=== PATIENT | female | born 1940 | race Caucasian/White ===

== ENCOUNTER 2016-07-22 09:41 | Outpatient (CLI) ==
[2012-12-03 07:03] VITALS: TEMP 97.6
[2015-08-01 14:47] VITALS: BMI 29.2
[2016-07-22 10:17] LABS: BASOPHILS # (AUTO) 0.1 K/uL (0-0.2); BASOPHILS % (AUTO) 1.2 % (0.0-3.0); EOSINOPHILS # (AUTO) 0.1 K/ul (0.0-0.7); HEMATOCRIT 46.7 % (37.0-47.0); HEMOGLOBIN 14.7 g/dl (12.0-16.0); IMMATURE GRANULOCYTE % (AUTO) 0.3 % (0.0-5.0); LYMPHOCYTES # (AUTO) 1.5 K/uL (0.60-3.4); LYMPHOCYTES % (AUTO) 22.6 (10.0-50.0); MEAN CORPUSCULAR HEMOGLOBIN 29.1 pg (27.0-31.0); MEAN CORPUSCULAR HGB CONC 31.5 (31.8-35.4); MEAN CORPUSCULAR VOLUME 92.5 fl (81.0-99.0); MONOCYTES # (AUTO) 0.5 K/uL (0.4-2.0); MONOCYTES % (AUTO) 8.2 (0-10); NEUTROPHILS # (AUTO) 4.3 K/ul (2.0-6.9); NEUTROPHILS % (AUTO) 65.7; PLATELET COUNT 333 10^3/uL (140-440); RED BLOOD COUNT 5.05 10^6/ul (4.20-5.40); WHITE BLOOD COUNT 6.47 K/ul (4.6-10.2)
[2016-07-22 10:30] LABS: ALBUMIN 3.8 g/dL (3.4-5.0); ALBUMIN/GLOBULIN RATIO 1.03; ANION GAP 13.7; BILIRUBIN,TOTAL 0.33 mg/dL (0.00-1.20); BUN/CREATININE RATIO 28.57; CALCIUM 10.4 mg/dL (8.2-10.2); CHOL/HDL RATIO 2.7 (4.5-5.5); CREATININE 0.91 mg/dL (0.60-1.30); POTASSIUM 4.7 mmol/L (3.5-5.10); TOTAL PROTEIN 7.5 g/dL (5.8-8.1)
== END 2016-07-22 09:42 | disposition home or self-care (01) ==
LOC: LAB 09:41
PROVIDERS: ATTEND Psychiatry & Neurology Psychiatry
DX: Z79.899 Other long term (current) drug therapy (principal); F33.2 Major depressive disorder, recurrent severe without psychotic features
CPT/HCPCS: 36415; 80053; 80061; 85025; 90853

== ENCOUNTER 2016-07-29 10:00 | Outpatient (RCR) ==
[2012-12-03 07:03] VITALS: TEMP 97.6
[2015-08-01 14:47] VITALS: BMI 29.2
== END 2016-08-04 ==
LOC: NEWBEG 10:00
PROVIDERS: ATTEND Psychiatry & Neurology Psychiatry
DX: F33.2 Major depressive disorder, recurrent severe without psychotic features (principal)
CPT/HCPCS: 90853; 99214

== ENCOUNTER 2016-08-14 10:00 | Outpatient (RCR) ==
[2012-12-03 07:03] VITALS: TEMP 97.6
[2015-08-01 14:47] VITALS: BMI 29.2
== END 2016-09-01 ==
LOC: NEWBEG 10:00
PROVIDERS: ATTEND Psychiatry & Neurology Psychiatry
DX: F33.2 Major depressive disorder, recurrent severe without psychotic features (principal)
CPT/HCPCS: 90853; 99213

== ENCOUNTER 2016-10-28 10:00 | Outpatient (RCR) ==
[2012-12-03 07:03] VITALS: TEMP 97.6
[2015-08-01 14:47] VITALS: BMI 29.2
== END 2016-11-01 ==
LOC: NEWBEG 10:00
PROVIDERS: ATTEND Psychiatry & Neurology Psychiatry
DX: F33.2 Major depressive disorder, recurrent severe without psychotic features (principal)
CPT/HCPCS: 90792; 90853

== ENCOUNTER → 2016-12-02 | Outpatient (RCR) ==
[2012-12-03 07:03] VITALS: TEMP 97.6
[2015-08-01 14:47] VITALS: BMI 29.2
== END ==
LOC: NEWBEG 11-02 09:57
PROVIDERS: ATTEND Psychiatry & Neurology Psychiatry
DX: F33.2 Major depressive disorder, recurrent severe without psychotic features (principal)
CPT/HCPCS: 90853; 99213; 99214

== ENCOUNTER → 2017-01-01 | Outpatient (RCR) ==
[2012-12-03 07:03] VITALS: TEMP 97.6
[2015-08-01 14:47] VITALS: BMI 29.2
== END ==
LOC: NEWBEG 12-03 08:22
PROVIDERS: ATTEND Psychiatry & Neurology Psychiatry
DX: F33.2 Major depressive disorder, recurrent severe without psychotic features (principal)
CPT/HCPCS: 90853; 99213

== ENCOUNTER 2017-01-25 10:05 | Outpatient (CLI) ==
[2012-12-03 07:03] VITALS: TEMP 97.6
[2015-08-01 14:47] VITALS: BMI 29.2
== END 2017-01-25 10:06 | disposition home or self-care (01) ==
LOC: LAB 10:05
PROVIDERS: ATTEND Internal Medicine
DX: Z79.899 Other long term (current) drug therapy (principal)
CPT/HCPCS: 36415; 80152

== ENCOUNTER 2017-01-29 10:00 | Outpatient (RCR) ==
[2012-12-03 07:03] VITALS: TEMP 97.6
[2015-08-01 14:47] VITALS: BMI 29.2
== END 2017-02-01 ==
LOC: NEWBEG 10:00
PROVIDERS: ATTEND Psychiatry & Neurology Psychiatry
DX: F33.2 Major depressive disorder, recurrent severe without psychotic features (principal)
CPT/HCPCS: 90853; 99213

== ENCOUNTER 2017-02-22 08:59 | Outpatient (CLI) ==
[2012-12-03 07:03] VITALS: TEMP 97.6
[2015-08-01 14:47] VITALS: BMI 29.2
== END 2017-02-22 09:00 | disposition home or self-care (01) ==
LOC: RAD 08:59
PROVIDERS: ATTEND Internal Medicine
DX: Z12.31 Encounter for screening mammogram for malignant neoplasm of breast (principal)
CPT/HCPCS: 77067

== ENCOUNTER 2017-02-24 10:00 | Outpatient (RCR) ==
[2012-12-03 07:03] VITALS: TEMP 97.6
[2015-08-01 14:47] VITALS: BMI 29.2
== END 2017-03-04 ==
LOC: NEWBEG 10:00
PROVIDERS: ATTEND Psychiatry & Neurology Psychiatry
DX: F33.2 Major depressive disorder, recurrent severe without psychotic features (principal)
CPT/HCPCS: 90853; 99213

== ENCOUNTER 2017-03-05 10:00 | Outpatient (RCR) ==
[2012-12-03 07:03] VITALS: TEMP 97.6
[2015-08-01 14:47] VITALS: BMI 29.2
== END 2017-04-03 ==
LOC: NEWBEG 10:00
PROVIDERS: ATTEND Psychiatry & Neurology Psychiatry
DX: F33.2 Major depressive disorder, recurrent severe without psychotic features (principal)
CPT/HCPCS: 90853; 99213

== ENCOUNTER 2017-03-20 12:15 | Outpatient (CLI) | payer OTHER ==
[2012-12-03 07:03] VITALS: TEMP 97.6
[2015-08-01 14:47] VITALS: BMI 29.2
== END 2017-03-20 12:16 | disposition home or self-care (01) ==
LOC: AMBL 12:15
PROVIDERS: ATTEND Internal Medicine Geriatric Medicine
DX: G89.18 Other acute postprocedural pain (principal); M54.9 Dorsalgia, unspecified

== ENCOUNTER 2018-01-24 12:33 | Outpatient (CLI) ==
[2012-12-03 07:03] VITALS: TEMP 97.6
[2015-08-01 14:47] VITALS: BMI 29.2
--- NOTE | 2018-01-24 15:13 | US ---
EXAM: Carotid ultrasound HISTORY: Dizziness COMPARISON: 08/02/2015 TECHNIQUE: Carotid ultrasound was performed using lopez scale, color, and Doppler imaging was perform ed. FINDINGS: Right carotid: There is mild atherosclerotic plaque in the bulb and internal carotid artery. Peak s ystolic velocity measurement in the right internal carotid artery is 0.9 meters per second. End-demarco tolic velocity measurement in the right internal carotid artery is 0.2 meters per second. Right inte rnal to common carotid artery peak systolic velocity ratio is 1.1. Flow in the right vertebral arter y is antegrade. Left carotid: There is mild atherosclerotic plaque in the bulb and internal carotid artery. Peak sy stolic velocity measurement in the left internal carotid artery is 1.0 meters per second. End-diasto lic velocity measurement in the left internal carotid artery is 0.2 meters per second. Left internal to common carotid artery peak systolic velocity ratio measures 1.4. Flow in the left vertebral barbara ry is antegrade. IMPRESSION: 1. Right internal carotid: No evidence for greater than 50% stenosis 2. Left internal carotid: No evidence for greater than 50% stenosis
--- NOTE | 2018-01-24 15:13 | CT ---
EXAM: CT BRAIN, COMPLETE HISTORY: Dizziness TECHNIQUE: CT brain with and without intravenous contrast. 5-mm axial sections. Reformations were prepared. 75 ml Omnipaque FINDINGS: Compared to 08/01/2015. There is generalized atrophy, much greater in the frontal lobes. There is mild to moderate periventri cular and deep white matter low attenuation which although nonspecific is suggestive of chronic micro vascular ischemic change. No evidence of recent large vessel distribution ischemic infarction, mass, mass effect or intracranial hemorrhage. There is no acute ventriculomegaly or subdural hematoma. After intravenous contrast administration, there were no foci of abnormal contrast enhancement discov ered. Cranium is intact. Mastoid air cells are aerated and the visualized paranasal sinuses are clear. IMPRESSION: Involutional changes. No acute intracranial process identified. No abnormal contrast en hancing lesions.
== END 2018-01-24 12:34 | disposition home or self-care (01) ==
LOC: RAD 12:33
PROVIDERS: ATTEND Internal Medicine
DX: R42 Dizziness and giddiness (principal); R47.81 Slurred speech; I10 Essential (primary) hypertension
CPT/HCPCS: 36415; 80053; 85025

== ENCOUNTER 2018-05-09 09:36 | Outpatient (CLI) ==
[2012-12-03 07:03] VITALS: TEMP 97.6
[2015-08-01 14:47] VITALS: BMI 29.2
--- NOTE | 2018-05-09 12:03 | MAMMO ---
EXAM: Bilateral digital screening mammogram (2-D and 3-D) History: Screening Comparison: Bilateral mammogram 02/22/2017 Findings: MLO and CC views of bilateral breasts demonstrate scattered fibroglandular breast parenchy ma. CAD was reviewed by the radiologist. Tomosynthesis was performed. Stable benign bilateral ash[address] st calcifications. There are no dominant masses, no suspicious microcalcifications and no architectu ral distortions Impression: Benign stable mammogram. Recommend followup routine screening mammography in 1 year. BIRADS 2
== END 2018-05-09 09:37 | disposition home or self-care (01) ==
LOC: RAD 09:36
PROVIDERS: ATTEND Internal Medicine
DX: Z12.31 Encounter for screening mammogram for malignant neoplasm of breast (principal)

== ENCOUNTER 2018-08-26 09:00 | Outpatient (RCR) ==
[2012-12-03 07:03] VITALS: TEMP 97.6
[2015-08-01 14:47] VITALS: BMI 29.2
--- NOTE | 2018-08-10 13:36 | RS.OPPTEV2 ---
Date of Note: 08/09/18 Visit #: 1 Number of visits approved by Insurance: NA Date of Evaluation: 08/09/18 Payer Source: MEDICARE Surgery Performed?: No Treatment Diagnosis: Left shoulder pain History of Condition/Mechanism of Injury:: Ms. Man reports having left shoulder pain for a few years. States it has just now been addressed because it was thought to have been coming from her neck. States she has arthritis all over. Prior Level of Function.....Patient was independent with: ADL's, Self Care, Ambulation/Mobility, Community Integration/Access Functional Limitations: Self Care, ADL's, Reaching, Pushing, Pulling, Lifting, Carrying, Community Access/Integration Current Subjective/complaints:: Patient reports left shoulder pain. She just had an Xray of the left shoulder yesterday. She is right hand dominant. Reports she cannot use the left UE very much for selfcare or ADL's due to pain. States she is unable to lay on the left shoulder. Reports tingling and numbness in her UE's from her neck. 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 States her shoulder is sore. Reports heat does not usually do much. She gets some benefit with ice. States when she is hurting really bad, the only thing that helps is taking a pain pill. Reports difficulty performing selfcare and ADL's with the left UE, such as donning/doffing her bra. Treatment Side (optional): Left Medical History Medical History: Hypertension, CVA/TIA, Arthritis ("all over"), Other Medical History Comments:: Bladder surgery, depression, PN Surgical History Comments:: Lumbar surgery 2013 and 2016, Cervical sugery 2016, Left ulnar nerve relocation >35 years ago. Smoking Status: Former smoker Hx Home Medications: Fluoxetine, Methylphenidate, Omeprazole, Losartan, Calcium , Aspirin, [place], Trazodine, Olanzapine, Simvastatin Patient's Goals: Her goal is to get some relief of left shoulder pain. Pain Assessment - Pain Description Pain Location: left shoulder Current Pain Intensity: 2/10 Worst Pain Intensity: 7/10 Functional Outcome Measure UE Functional Index: 42 (42/80=47.5% impairment) - G Codes & Severity Modifier G Codes & Modifier: NA Source of G Code score: NA Observation - Observation Posture: Forward Head, Rounded Shoulders Handedness: Right - Left Shoulder ROM Comments: Left shoulder AROM is WFL's into flexion, ER and IR. She reports pain above shoulder height and with end range ER and IR. Left shoulder active abduction to 110 degrees, limited by pain. - Right Shoulder ROM Comments: Right shoulder AROM is WFL's. - Left Shoulder Strength Left Shoulder Flexion: 4- Good- Left Shoulder Extension: 4- Good- Left Shoulder Abduction: 3+ Fair+ Left Shoulder Adduction: 4 Good Left Shoulder External Rotation: 4- Good- Left Shoulder Internal Rotation: 4- Good- - Right Shoulder Strength Right Shoulder Flexion: 4+ Good + Right Shoulder Extension: 4+ Good + Right Shoulder Abduction: 4+ Good + Right Shoulder Adduction: 4+ Good + Right Shoulder External Rotation: 4 Good Right Shoulder Internal Rotation: 4 Good - Special Tests Shoulder Quigley-Singh Impingement Test: Positive Left Comments: Difficult to perform Valid Special Tests to the left shoulder due to patient reporting pain throughout the left shoulder, elbow, and wrist with all testing. Chair Strength Left Hand Chair Strength: 25-26 lb.s Right Hand Chair Strength: 20 lbs. Dynamometer Testing Position: 2nd Position Palpation Comments:: Patient reports significant tenderness with palpation to the left shoulder joint, especially the posterior aspect of the GH joint and the superior border of the left scapula. Reports she is sore throughout the shoulder. Sensation - Sensation Comments: Reports tingling and numbness in both UE's. States she can distinguish light touch throughout both UE's. Interventions - Exercise/Activities/Manual Therapy Exercises/Activities: Pt instructed in pendulum ex, scapular retraction, and wall slide/finger walking for AAROM into shoulder flexion. Emhasized several times to perform activities and exercises in a range that does not increase her pain. Total minutes of Exercise: X 12 mins Manual Therapy: na HOME EXERCISE PROGRAM: pendulum ex, scapular retraction, and wall slide/finger walking for AAROM into shoulder flexion. - Charges Timed Code Treatment Minutes: 12 mins Total Treatment Time: 45 mins Procedures billed for this date of service:: EVAL Medium, EX EVALUATION COMPLEXITY LEVEL EVALUATION COMPLEXITY LEVEL: HISTORY: Medium (HX Arthritis, Lumbar sx, Cerv sx, Ulnar nerve sx), EXAM OF BODY SYSTEMS: Medium (ROM, MS, pain, sensation), CLINICAL PRESENTATION: Medium, CLINICAL DECISION MAKING: Medium Assessment Assessment: Ms. Man presents to therapy with a diagnosis of chronic left shoulder pain. She reports pain with ROM and limitation with ADL's such as donning/doffing bra and other clothes. She demonstrates functional AROM, but weakness throughout the left shoulder. It is difficult to determine soft- tissue involvement, due to reports of pain with all palpation, ROM, and strength testing. She demonstrates potential to benefit from strengthening exercises to gain some relief of pain and increase functional use of the left UE. Patient Education: Education of diagnosis, Body/Joint mechanics, Home Exercise Program, Education of Plan of Care Rehab Potential: Good Short Term Goals Goal #1: Pt independent in HEP. Goal to be met by: 08/24/18 Goal #2: Left shoulder strength 4/5. Goal to be met by: 08/24/18 Goal #3: Pt to demonstrate improved postural awareness. Goal to be met by: 08/24/18 Jail Goals Goal #1: Pt knows HEP and to continue ex's to maintain functional level at D/c. Goal to be met by: 09/19/18 Goal #2: Score on UE functional scale improved to 60/80. Goal to be met by: 09/19/18 Goal #3: Pt able to use left UE for selfcare and ADL's with minimal discomfort. Goal to be met by: 09/19/18 Goal #4: Pt able to sleep without interruption from left shoulder pain. Goal to be met by: 09/19/18 Plan - Treatment to be Provided Procedures: Therapeutic Exercises, Therapeutic Activity, Manual Therapy, Patient Education Modalities: Electrical Stimulation, Ultrasound/Phonophoresis, Cryotherapy, Hot Packs - Treatment Plan Frequency: 2-3 X week Duration: 4 weeks Dates of Acid Wash Operator Goals: 09/19/18 Expiration date of current Insurance Approval:: NA - Treatment Code (1) Shoulder pain Code(s): M25.519 - PAIN IN UNSPECIFIED SHOULDER Qualifiers: Chronicity: chronic Laterality: left Qualified Code(s): M25.512 - Pain in left shoulder; G89.29 - Other chronic pain (2) Weakness of shoulder Code(s): M62.81 - MUSCLE WEAKNESS (GENERALIZED) Comments: M62.81
--- NOTE | 2018-08-11 10:54 | RS.OPPTDN ---
Subjective Date of Note: 08/11/18 Visit #: 2 Number of visits approved by Insurance: [id number] Date of Evaluation: 08/09/18 Payer Source: MEDICARE Treatment Diagnosis: Left shoulder pain Current Subjective/complaints:: Patient c/o LE pain along with her back and L shoulder due to rain. She says her shoulder feels good when she is in the hot shower, but after she gets out, pain returns. She points to the lateral and superior L scapula for pain location. - Treatment Modality: Ultrasound Parameters/Method Applied: continuous @ 1.5 w/cm2 x 12 mins to the L shoulder ( posterior) and superior/lateral scapula. Patient Position: Sitting - Heat/Cryotherapy Treatment: Hot Pack (12 mins to the L shoulder and scapula in sitting) Interventions - Exercise/Activities/Manual Therapy Exercises/Activities: Patient began to receive gentle PROM for the L UE all dir. She performs shoulder shrugs and scap retraction. Started manual isometrics x 3 for biceps/triceps, ER/IR, ABD. Began pt education of diagnosis and HEP. Total minutes of Exercise: 12 Manual Therapy: na HOME EXERCISE PROGRAM: pendulum ex, scapular retraction, and wall slide/finger walking for AAROM into shoulder flexion. - Charges Timed Code Treatment Minutes: 24 Total Treatment Time: 36 Procedures billed for this date of service:: hp, u/s, ex Assessment: Patient presents with pain generally throughout related to arthritis , previous surgeries, and damp weather. She expresses tenderness to the L shoulder posteriorally and to the superior scapular region, however, this was not affected by u/s. She was able to susan Passive elevation to near WFL, but ABD was less tolerable and more limited. She should benefit from further modalities to ease pain and improve ROM and strength to the L UE. Patient Education: Education of diagnosis, Home Exercise Program, Education of Plan of Care Patient demonstrates compliance with HEP?: Yes Short Term Goals Goal #1: Pt independent in HEP. Goal to be met by: 08/24/18 Progress towards Goal:: Progressing Comments:: Patient has initiated Goal #2: Left shoulder strength 4/5. Goal to be met by: 08/24/18 Goal #3: Pt to demonstrate improved postural awareness. Goal to be met by: 08/24/18 Slip Presser Goals Goal #1: Pt knows HEP and to continue ex's to maintain functional level at D/c. Goal to be met by: 09/19/18 Goal #2: Score on UE functional scale improved to 60/80. Goal to be met by: 09/19/18 Goal #3: Pt able to use left UE for selfcare and ADL's with minimal discomfort. Goal to be met by: 09/19/18 Goal #4: Pt able to sleep without interruption from left shoulder pain. Goal to be met by: 09/19/18 Plan Dates of Slip Presser Goals: 09/19/18 Expiration date of current Insurance Approval:: 09/19/18 PLAN: Patient to continue for treatment to the L UE
--- NOTE | 2018-08-15 11:20 | RS.OPPTDN ---
Subjective Date of Note: 08/15/18 Visit #: 3 Number of visits approved by Insurance: Reassess at 10th Date of Evaluation: 08/09/18 Payer Source: MEDICARE Treatment Diagnosis: Left shoulder pain Current Subjective/complaints:: Patient recalls elevation of pain to the L side of the neck and shoulder. She says that last treatment seemed to help for about a day. - Treatment Modality: Ultrasound Parameters/Method Applied: continuous @ 1.5 w/cm2 x 12 mins to the L shoulder and distal portion of L UT Patient Position: Sitting - Heat/Cryotherapy Treatment: Hot Pack (over the L shoulder and neck in sitting x 15 mins) Interventions - Exercise/Activities/Manual Therapy Exercises/Activities: Patient began with gentle PROM to the cspine for SB, rotation, shoulder shrugs and scap adduction actively. Continued to receive gentle PROM for the L UE all dir. Continued with manual isometrics x 5 for biceps/triceps, ER/IR, FLEX/EXT, ABD. Continued with pt education of diagnosis , anatomy, therex performed, and HEP. Total minutes of Exercise: 16 Manual Therapy: na HOME EXERCISE PROGRAM: pendulum ex, scapular retraction, and wall slide/finger walking for AAROM into shoulder flexion. - Charges Timed Code Treatment Minutes: 28 Total Treatment Time: 43 Procedures billed for this date of service:: hp, u/s, ex Assessment: Patient presents with elevated shoulder and neck pain (L) probably due to consistent raining and cooler temps as she admits improvement for ~1 day following previous session. She has difficulty susan Cspine ROM beyond ~50% norm due to past ACF. She susan passive L shoulder flex/abd WFL and without pain/ difficulty. She appears to be responding to treatment currently. Patient Education: Education of diagnosis, Body/Joint mechanics, Home Exercise Program, Education of Plan of Care Short Term Goals Goal #1: Pt independent in HEP. Goal to be met by: 08/24/18 Progress towards Goal:: Progressing Goal #2: Left shoulder strength 4/5. Goal to be met by: 08/24/18 Goal #3: Pt to demonstrate improved postural awareness. Goal to be met by: 08/24/18 Half-Way Goals Goal #1: Pt knows HEP and to continue ex's to maintain functional level at D/c. Goal to be met by: 09/19/18 Goal #2: Score on UE functional scale improved to 60/80. Goal to be met by: 09/19/18 Goal #3: Pt able to use left UE for selfcare and ADL's with minimal discomfort. Goal to be met by: 09/19/18 Goal #4: Pt able to sleep without interruption from left shoulder pain. Goal to be met by: 09/19/18 Plan Dates of Half-Way Goals: 09/19/18 Expiration date of current Insurance Approval:: 09/19/18 PLAN: Patient to continue for modalities and therex for the L shoulder/neck.
--- NOTE | 2018-08-17 10:21 | RS.OPPTDN ---
Subjective Date of Note: 08/17/18 Visit #: 4 Number of visits approved by Insurance: NA Date of Evaluation: 08/09/18 Payer Source: MEDICARE Treatment Diagnosis: Left shoulder pain Current Subjective/complaints:: Patient reports she has taken pain meds. this morning .She cannot on the L shoulder ,as it increases the L shoulder pain. Pain Assessment - Pain Description Pain Location: L shoulder/upper portion of L scapula Pain Description: Dull, Aching, Chronic Current Pain Intensity: 2/10 - Treatment Modality: Ultrasound Parameters/Method Applied: 10 mins. @ 1.5 w/cm 2,continuous mode to L shoulder. Patient Position: Sitting - Heat/Cryotherapy Treatment: Hot Pack (20 mins. prior to US and exercises) Interventions - Exercise/Activities/Manual Therapy Exercises/Activities: 20 mins. ,beginning with biceps/triceps strengthening with yellow theraband,IR/ER with L arm at side using yellow theraband,then 1# wand exercise of overhead flexion with elbows extended ,then with elbows flexed. Total minutes of Exercise: 20 Manual Therapy: na Total minutes of Manual Therapy: 0 HOME EXERCISE PROGRAM: pendulum ex, scapular retraction, and wall slide/finger walking for AAROM into shoulder flexion. - Charges Timed Code Treatment Minutes: 20 Total Treatment Time: 50 Procedures billed for this date of service:: hp,US ,ex Assessment: Patient has functional ROM in the L shoulder,but c/o pain more in the upper medial border of the L scapula and muscle belly of the L upper trap.She reports relief continues to last about one day,but also mentions the rainy weather recently elevates her pain. Patient Education: Education of diagnosis, Body/Joint mechanics, Home Exercise Program, Home Safety, Activity Modification, Education of Plan of Care Patient demonstrates compliance with HEP?: Yes Short Term Goals Goal #1: Pt independent in HEP. Goal to be met by: 08/24/18 Progress towards Goal:: Progressing Goal #2: Left shoulder strength 4/5. Goal to be met by: 08/24/18 Progress towards Goal:: Progressing Goal #3: Pt to demonstrate improved postural awareness. Goal to be met by: 08/24/18 Paving Inspector Goals Goal #1: Pt knows HEP and to continue ex's to maintain functional level at D/c. Goal to be met by: 09/19/18 Progress towards goal: Progressing Goal #2: Score on UE functional scale improved to 60/80. Goal to be met by: 09/19/18 Goal #3: Pt able to use left UE for selfcare and ADL's with minimal discomfort. Goal to be met by: 09/19/18 Goal #4: Pt able to sleep without interruption from left shoulder pain. Goal to be met by: 09/19/18 Plan Dates of Paving Inspector Goals: 09/19/18 Expiration date of current Insurance Approval:: NA PLAN: Cont. skilled PT to reduce /eliminate L shoulder pain,increase ROM for functional activities.
--- NOTE | 2018-08-23 13:44 | RS.OPPTDN ---
Subjective Date of Note: 08/23/18 Visit #: 5 Number of visits approved by Insurance: Reassess at 10th Date of Evaluation: 08/09/18 Payer Source: MEDICARE Treatment Diagnosis: Left shoulder pain Current Subjective/complaints:: Patient says she believes she will always have "this kind of pain," but performs tasks that have to be done anyway. She says riding in the car is the worst to tolerate and reports hanging up laundry prior to coming into therapy this morning has aggravated her pain. Patient says she has only had slight, temporary relief from PT. She says she wants to make Wednesday her final session. Pain Assessment - Pain Description Pain Location: L shoulder and scapula - Treatment Modality: Ultrasound Parameters/Method Applied: continuous @ 1.5 w/cm2 x 12 mins to the L distal UT, scapula, and shoulder Patient Position: Sitting - Heat/Cryotherapy Treatment: Hot Pack (over the L shoulder and neck x 20 mins sitting) Interventions - Exercise/Activities/Manual Therapy Exercises/Activities: 20 mins. PROM to the L shoulder all ranges in sitting, isometrics for ABD/IR/ER/EXT/FLEX 2x5. 1# wand for bilateral shoulder elevation , shoulder shrugs, scap adduction, yellow tband for scap retraction x 10reps. Continued with education on diagnosis and HEP as well as benefits of treatment today. Manual Therapy: na HOME EXERCISE PROGRAM: pendulum ex, scapular retraction, and wall slide/finger walking for AAROM into shoulder flexion. - Charges Timed Code Treatment Minutes: 32 Total Treatment Time: 52 Procedures billed for this date of service:: hp,u/s, ex Assessment: Patient only admitting slight improvement in pain level to the L shoulder/scapula, but is temporary. She wishes to discontinue order early and have her next session be her final visit. She feels her symptoms are going to be ever present no matter what. She has some difficulty tolerating isometrics and active shoulder flexion beyond 110-120 degrees. Patient Education: Education of diagnosis, Home Exercise Program, Education of Plan of Care Short Term Goals Goal #1: Pt independent in HEP. Goal to be met by: 08/24/18 Progress towards Goal:: Progressing Goal #2: Left shoulder strength 4/5. Goal to be met by: 08/24/18 Progress towards Goal:: Progressing Goal #3: Pt to demonstrate improved postural awareness. Goal to be met by: 08/24/18 Validation Manager Goals Goal #1: Pt knows HEP and to continue ex's to maintain functional level at D/c. Goal to be met by: 09/19/18 Progress towards goal: Progressing Goal #2: Score on UE functional scale improved to 60/80. Goal to be met by: 09/19/18 Goal #3: Pt able to use left UE for selfcare and ADL's with minimal discomfort. Goal to be met by: 09/19/18 Goal #4: Pt able to sleep without interruption from left shoulder pain. Goal to be met by: 09/19/18 Plan Dates of Custodial Goals: 09/19/18 Expiration date of current Insurance Approval:: 09/19/18 PLAN: continue x 1 more session per patient's request.
--- NOTE | 2018-08-26 12:06 | RS.OPPTDN ---
Subjective Date of Note: 08/26/18 Visit #: 6 Number of visits approved by Insurance: Reassess at 10 Date of Evaluation: 08/09/18 Payer Source: MEDICARE Treatment Diagnosis: Left shoulder pain Current Subjective/complaints:: Patient reports elevated pain today. Says she is really achy related to the weather. Reports she has not had much relief with therapy and wants to stop after today, but does indicate that she has more mobility to her shoulder. - Treatment Modality: Ultrasound Parameters/Method Applied: continuous @ 1.5 w/cm2 x 10 mins to the L UT ( distally) and shoulder Patient Position: Sitting - Heat/Cryotherapy Treatment: Hot Pack (over the L UT/shoulder x 20 mins in sitting) Interventions - Exercise/Activities/Manual Therapy Exercises/Activities: 20 mins. PROM to the L shoulder all ranges in supine, isometrics for ABD/IR/ER/EXT/FLEX 2x5. 1# wand for bilateral shoulder elevation supine, shoulder shrugs, scap adduction, red tband for scap retraction x 10reps. 1# wand for bilateral shoulder elevation in sitting x 10, wand for AA ABD x 8. Provided handout for more HEP with red tband. Patient voices understanding. Total minutes of Exercise: 17 Manual Therapy: na HOME EXERCISE PROGRAM: pendulum ex, scapular retraction, and wall slide/finger walking for AAROM into shoulder flexion. - Charges Timed Code Treatment Minutes: 29 Total Treatment Time: 44 Procedures billed for this date of service:: hp,u\s, ex Assessment: Patient demo Passive flexion to 160 degrees, ABD to 100 degrees supine. Actively, pt able to achieve 140 degrees in sitting, abd to 90. Patient wishes to discontinue due to the fact she still has moderate to severe pain and it affects many tasks daily especially riding/driving car. She does admit improved ROM actively, but feels treatment is not affective presently. Unsure if she is compliant with HEP at this time. Patient Education: Education of diagnosis, Home Exercise Program, Home Safety, Education of Plan of Care Short Term Goals Goal #1: Pt independent in HEP. Goal to be met by: 08/24/18 Progress towards Goal:: Progressing Goal #2: Left shoulder strength 4/5. Goal to be met by: 08/24/18 Progress towards Goal:: Progressing Goal #3: Pt to demonstrate improved postural awareness. Goal to be met by: 08/24/18 Progress towards Goal:: No Change Director Medicaid Goals Goal #1: Pt knows HEP and to continue ex's to maintain functional level at D/c. Goal to be met by: 09/19/18 Progress towards goal: Progressing Goal #2: Score on UE functional scale improved to 60/80. Goal to be met by: 09/19/18 Progress towards goal: No Change Goal #3: Pt able to use left UE for selfcare and ADL's with minimal discomfort. Goal to be met by: 09/19/18 Progress towards goal: Progressing Goal #4: Pt able to sleep without interruption from left shoulder pain. Goal to be met by: 09/19/18 Progress towards goal: No Change Plan Dates of Director Medicaid Goals: 09/19/18 Expiration date of current Insurance Approval:: 09/19/18 PLAN: Patient to d/c per her request
--- NOTE | 2018-08-31 09:50 | RS.OPPTDC ---
Date of Discharge: 08/26/18 Date of Evaluation: 08/09/18 Number of Visits: 6 Treatment Diagnosis: Left shoulder pain Current Complaints/Gains: Patient requests to stop therapy after today's visit. States she has had little change and feels she is just going to have flare ups and will have to manage them. She reports tightness and soreness to the right side of the neck, scapula, and shoulder. Functional Outcome Measure UE Functional Index: 42 (42/80=47.5% impairment) - G Codes & Severity Modifier G Codes & Modifier: NA Source of G Code score: NA Interventions - Exercise/Activities/Manual Therapy Exercises/Activities: NA Manual Therapy: na HOME EXERCISE PROGRAM: pendulum ex, scapular retraction, and wall slide/finger walking for AAROM into shoulder flexion. - Objective Findings Observations,measurements,etc.: Demonstrates shoulder abduction to 120 degrees AROM. Flexion WFL's. MMT 4+/5 grossly. - Charges Timed Code Treatment Minutes: NA Total Treatment Time: NA Procedures billed for this date of service:: NA Assessment Assessment: No change in UE functional index. Patient requests to stop therapy. Slight improvement with active shoulder abduction. Patient has exercises to continue at home. Short Term Goals Goal #1: Pt independent in HEP. Goal to be met by: 08/24/18 Progress towards Goal:: Met Goal #2: Left shoulder strength 4/5. Goal to be met by: 08/24/18 Progress towards Goal:: Not Met Goal #3: Pt to demonstrate improved postural awareness. Goal to be met by: 08/24/18 Progress towards Goal:: Not Met [employer] Service Supervisor Goals Goal #1: Pt knows HEP and to continue ex's to maintain functional level at D/c. Goal to be met by: 09/19/18 Progress towards goal: Met Goal #2: Score on UE functional scale improved to 60/80. Goal to be met by: 09/19/18 Progress towards goal: Not Met Goal #3: Pt able to use left UE for selfcare and ADL's with minimal discomfort. Goal to be met by: 09/19/18 Progress towards goal: Not Met Goal #4: Pt able to sleep without interruption from left shoulder pain. Goal to be met by: 09/19/18 Progress towards goal: Not Met Plan Reason for Discharge:: Self-Discharge
== END 2018-09-01 23:59 ==
PROVIDERS: ATTEND Nurse Practitioner Family
DX: M25.512 Pain in left shoulder (principal); G89.29 Other chronic pain

== ENCOUNTER 2018-09-28 08:06 | Outpatient (CLI) ==
[2012-12-03 07:03] VITALS: TEMP 97.6
[2015-08-01 14:47] VITALS: BMI 29.2
== END 2018-09-28 08:07 | disposition home or self-care (01) ==
LOC: LAB 08:06
DX: Z79.899 Other long term (current) drug therapy (principal)
CPT/HCPCS: 36415; 80053

== ENCOUNTER 2019-07-09 08:32 | Inpatient (IN) ==
--- NOTE | 2019-07-09 09:02 | ED.PDOC ---
General ED Provider: Dr. SKYLER SY Chief Complaint: Urinary Problem Stated Complaint: states his having difficulty initiating urination, lower abdominal cramping, freq trips to bathroom, Slight rectal bleeding Time Seen by Physician: 09:02 Mode of Arrival: Walk-In Information Source: Patient Primary Care Provider: CARISA RUIZ Nursing and Triage Documentation Reviewed and Agree: Yes Does patient meet sepsis criteria?: No System Inflammatory Response Syndrome: Not Applicable Sepsis Protocol: For patient's 13 years and over: Temp is 96.8 and below OR 101 and greater Pulse >90 BPM Resp >20/minute Acutely Altered Mental Status Are patient's symptoms suggestive of a new infection, such as: -Pneumonia -Skin, Soft Tissue -Endocarditis -UTI -Bone, Joint Infection -Implantable Device -Acute Abdominal Infection -Wound Infection -Meningitis -Blood Stream Catheter Infection -Unknown Complaint Exam Complaint/Exam Patient Complains of: Reports Dysuria (inability to void) Onset/Duration: 24 hr Symptoms Are: Worse Timing: Constant Episodes of Voiding Over Last 12 Hours: 0 Initial Severity: Moderate Current Severity: Moderate Location of Pain: Reports Suprapubic Character: Reports Colicky, Constant pressure and Cramping Aggravating: Reports None Alleviating: Reports None Associated Signs and Symptoms: Reports Dysuria, Constipation and Rectal pain Surgical Obstruction Risk Factors: Reports None Related Surgical History: Reports None Abdominal Findings: Present None Differential Diagnoses: Ureteral Stone and UTI Review of Systems Review Of Systems Constitutional: Reports No symptoms Eyes: Reports No symptoms Ears, Nose, Mouth, Throat: Reports No symptoms Respiratory: Reports No symptoms Cardiac: Reports No symptoms GI: Reports No symptoms and Abdominal pain : Reports No symptoms, Dysuria and Urgency Musculoskeletal: Reports No symptoms Skin: Reports No symptoms Neurological: Reports No symptoms Endocrine: Reports No symptoms Hematologic/Lymphatic: Reports No symptoms All Other Systems: Reviewed and Negative [facility] Medical History Arthritis Cerebrovascular accident Elevated cholesterol Gastroesophageal reflux disease Family History Mother Cardiac disease Psychiatric problem Cerebrovascular accident Father Diabetes Cancer SISTER No problems noted. Social History Smoking and tobacco status: Former smoker Substance use type: does not use Female Reproductive History Menstrual Hx Hysterectomy: Yes Hx Tubal Ligation: Yes Physical Exam Physical Exam Appearance: Well-appearing Ill-appearing: None Pain Distress: Mild Eyes: MELI ENT: Ears normal, Nose normal and Oropharynx normal Neck: Supple Respiratory: Airway patent, Breath sounds clear and Breath sounds equal Cardiovascular: RRR, Pulses normal, No rub and No murmur GI/: Soft, Nontender, No masses, Bowel sounds normal and No Organomegaly Musculoskeletal: Normal strength and ROM intact Skin: Warm, Dry and Normal color Neurological: Sensation intact, Motor intact, Reflexes intact, Cranial nerves intact, Alert and Oriented Psychiatric: Affect appropriate, Mood appropriate and Anxious Critical Care Note Critical Care Note Total Time (mins): 60 Course Course Hematology/Chemistry: 07/09/19 09:23 07/09/19 09:23 Orders, Labs, Meds: Lab Review 07/09/19 07/09/19 07/09/19 09:20 09:23 09:23 WBC 6.40 RBC 4.60 Hgb 13.7 Hct 42.6 MCV 92.6 MCH 29.8 MCHC 32.2 RDW Coeff of Giovanna 14.2 Plt Count 264 Immature Gran % (Auto) 0.3 Neut % (Auto) 81.3 Lymph % (Auto) 10.8 [place] % (Auto) 6.6 Eos % (Auto) 0.5 Baso % (Auto) 0.5 Immature Gran # (Auto) 0.0 Neut # (Auto) 5.2 Lymph # (Auto) 0.7 [place] # (Auto) 0.4 Eos # (Auto) 0.0 Baso # (Auto) 0.0 Sodium 140.4 Potassium 3.97 Chloride 104.8 Carbon Dioxide 27.6 Anion Gap 11.97 BUN 20.4 H Creatinine 0.73 Estimated GFR (MDRD) 77.00 BUN/Creatinine Ratio 27.94 Glucose 101.7 Calcium 9.97 Magnesium Total Bilirubin 0.51 AST 23.7 ALT 14.2 Alkaline Phosphatase 109.6 Troponin I < 0.012 Total Protein 7.14 Albumin 3.94 Globulin 3.20 Albumin/Globulin Ratio 1.23 Amylase Lipase Urine Color Yellow Urine Clarity Clear Urine pH 7.0 Ur Specific [place] 1.025 Urine Protein Negative Urine Glucose (UA) Negative Urine Ketones 1+ Urine Blood Negative Urine Nitrite Negative Urine Bilirubin Negative Urine Urobilinogen 0.2 Ur Leukocyte Esterase Negative 07/09/19 09:23 WBC RBC Hgb Hct MCV MCH MCHC RDW Coeff of Giovanna Plt Count Immature Gran % (Auto) Neut % (Auto) Lymph % (Auto) [place] % (Auto) Eos % (Auto) Baso % (Auto) Immature Gran # (Auto) Neut # (Auto) Lymph # (Auto) [place] # (Auto) Eos # (Auto) Baso # (Auto) Sodium Potassium Chloride Carbon Dioxide Anion Gap BUN Creatinine Estimated GFR (MDRD) BUN/Creatinine Ratio Glucose Calcium Magnesium 2.13 Total Bilirubin AST ALT Alkaline Phosphatase Troponin I Total Protein Albumin Globulin Albumin/Globulin Ratio Amylase 54.0 Lipase 97.8 Urine Color Urine Clarity Urine pH Ur Specific [place] Urine Protein Urine Glucose (UA) Urine Ketones Urine Blood Urine Nitrite Urine Bilirubin Urine Urobilinogen Ur Leukocyte Esterase Orders Category Date Time Status ADMIT PATIENT INPATIENT .TO [facility] (MONITORED BED) ADMISSION 07/09/19 11:53 Active ADMIT PATIENT INPATIENT .TO [facility] (MONITORED BED) ADMISSION 07/09/19 11:59 Active ABG DRAW REQUEST Stat CARDIO 07/09/19 11:57 Completed EKG-(ED ONLY) Stat CARDIO 07/09/19 11:57 Completed OXYGEN Routine CARDIO 07/09/19 11:58 Ordered ACTIVITY .BR with BRP CARE 07/09/19 12:00 Active INTAKE & OUTPUT Q8HR CARE 07/09/19 12:00 Active TELEMETRY MONITORING TELE CARE 07/09/19 11:53 Active TELEMETRY MONITORING TELE CARE 07/09/19 12:00 Active VITAL SIGNS Q8HR CARE 07/09/19 11:59 Active VITAL SIGNS Q8HR CARE 07/09/19 12:00 Active SOFT DIET DIETARY 07/09/19 Lunch Ordered [place] [ED CATHETER INSERTION AND CARE] .ONCE EMERGENCY 07/09/19 09:16 Active IV [ED IV/MEDIPORT/POWERPORT] .ONCE EMERGENCY 07/09/19 11:57 Active ABG Stat LAB 07/09/19 12:01 Completed CBC W/ AUTO DIFF DAILY@0600 LAB 07/10/19 06:00 Ordered CBC W/ AUTO DIFF DAILY@0600 LAB 07/11/19 06:00 Ordered CBC W/ AUTO DIFF Stat LAB 07/09/19 09:23 Completed CMP [COMPREHENSIVE METABOLIC PANEL] Stat LAB 07/09/19 09:23 Completed COMPREHENSIVE METABOLIC PANEL DAILY@0600 LAB 07/10/19 06:00 Ordered COMPREHENSIVE METABOLIC PANEL DAILY@0600 LAB 07/11/19 06:00 Ordered LIPASE Stat LAB 07/09/19 09:23 Completed MAGNESIUM Stat LAB 07/09/19 09:23 Completed TROPONIN I Stat LAB 07/09/19 09:23 Completed UA [URINALYSIS C & S IF INDICATED] Stat LAB 07/09/19 09:20 Completed 0.9 % Sodium Chloride [Saline Flush] MEDS 07/09/19 11:53 Active 1 syr IVF PRN PRN Lidocaine (Uro-Jet) [Uro-Jet] MEDS 07/09/19 09:16 Discontinued 10 ml [id number] ONCE STA Ondansetron HCl/Pf [Zofran 4 mg/2 ml] MEDS 07/09/19 11:58 Active 4 mg IVP Q6H PRN Sodium Chloride 0.9% [Sodium Chloride] 1,000 ml MEDS 07/09/19 11:53 Active IV BOLUS RESUSCITATION STATUS Routine OTHERS 07/09/19 11:[address] ABD/PEL WO RENAL STONE PROT Stat RADS 07/09/19 10:15 Completed Medications Generic Name Dose Route Start Last Admin Trade Name Freq PRN Reason Stop Dose Admin Hydrocodone Bitart/Acetaminophen 1 tab 07/09/19 12:59 [place] 7.5-325 PO QID PRN Severe pain Albuterol/Ipratropium 3 ml 07/09/19 14:00 Duoneb NEB RTQID NIELS Albuterol/Ipratropium 3 ml 07/09/19 12:47 Duoneb NEB RTQ6H PRN Wheezing; dyspnea Aspirin 325 mg 07/10/19 08:00 Aspirin Ec PO DAILYWM NIELS Cholecalciferol 1,000 unit 07/10/19 09:00 Vitamin D PO DAILY NIELS Citalopram Hydrobromide 40 mg 07/10/19 09:00 Celexa PO DAILY NIELS Losartan Potassium 100 mg 07/10/19 09:00 Cozaar PO DAILY NIELS Omeprazole 20 mg 07/09/19 21:00 Prilosec PO BID NIELS Ondansetron HCl 4 mg 07/09/19 11:58 Zofran 4 Mg/2 Ml IVP Q6H PRN Nausea / Vomiting Polyethylene Glycol 17 gm 07/09/19 13:00 Miralax PO DAILY NIELS Potassium Chloride 20 meq 07/10/19 09:00 K-Dur PO DAILY NIELS Sennosides 8.6 mg 07/09/19 13:00 Senna PO DAILY NIELS Sodium Chloride 1 syr 07/09/19 11:53 07/09/19 12:21 Saline Flush IVF 1 syr PRN PRN Administration To flush IV Trazodone HCl 200 mg 07/10/19 09:00 Desyrel PO DAILY NIELS Triamterene/HCTZ 1 cap 07/09/19 13:00 Dyazide PO DIRECTED NIELS Discontinued Medications Generic Name Dose Route Start Last Admin Trade Name Freq PRN Reason Stop Dose Admin Sodium Chloride 1,000 mls @ 1,000 mls/hr 07/09/19 11:53 07/09/19 12:21 Sodium Chloride IV 07/09/19 12:52 1,000 mls/hr BOLUS STA Administration Lidocaine HCl 10 ml 07/09/19 09:16 07/09/19 09:23 Uro-Jet MUCOUSMEMB 07/09/19 09:17 Not Given ONCE STA Vital Signs: Temp Pulse Resp BP Pulse Ox 07/09/19 08:32 98.9 F 81 16 149/83 H 94 L Discharge Plan Discharge Patient Disposition: ADMITTED INPATIENT Discharge Problem: Obstipation ED Provider: SKYLER SY Condition: Fair Discharge Date/Time: 07/09/19 12:50
[2019-07-09] MEDS ORDERED: URO-JET MUCOUSMEMB STA (09:16)
--- NOTE | 2019-07-09 10:57 | CT ---
EXAM: CT scan of the abdomen and pelvis without contrast HISTORY: Renal stone, constipation. TECHNIQUE: Helical imaging of the abdomen pelvis was performed without contrast. 3 mm thin axial im ages and coronal and sagittal reconstructions were provided for interpretation. Comparison 01/25/2019 and 03/27/2019. FINDINGS: The liver, spleen, pancreas, kidneys appear normal. The proximal ureters are normal size. The small and large bowel loops are normal caliber. There are small nonobstructing calculi seen wi thin the calyces of the left kidney. There is no free air. No retroperitoneal abnormalities are see n. The helical images obtained through the pelvis demonstrate a normal appearance of the urinary bladder . There is no free fluid seen within the pelvis. Scattered diverticula are seen within the sigmoid colon without acute inflammation. There is distension of the rectum by fecal material. There is a n odule seen in the subpleural left lung base seen on axial image #2. The lesion measures approximatel y 1.2 cm. IMPRESSION: There is no bowel obstruction. There is mild distension of the rectum by fecal material and the findings may represent mild fecal im paction. Interval mild increase in size of the left lower lobe pulmonary nodule measuring up to 1.2 cm. A nucl ear medicine PET scan can be obtained to determine if the lesion is metabolically active. A small br onchogenic carcinoma cannot be excluded. Mild diverticular disease of the sigmoid colon without acute inflammation. Nonobstructing nephrolithiasis seen within the left kidney. No definite obstructing ureteral calculi are seen.
[2019-07-09] MEDS ORDERED: SODIUM CHLORIDE 1,000 ML IV STA (11:53)
[2019-07-09] MEDS ORDERED: ZOFRAN 4 MG/2 ML IVP PRN (11:58)
[2019-07-09] MEDS ORDERED: DUONEB NEB PRN (12:47)
[2019-07-09] MEDS ORDERED: NORCO 7.5-325 PO PRN (12:59)
[2019-07-09] MEDS ORDERED: DYAZIDE PO SCH (13:00)
[2019-07-09 13:13] VITALS: BMI 25.5
[2019-07-09] MEDS: MIRALAX PO SCH (13:32)
[2019-07-09] MEDS: SENNA PO SCH (13:32)
[2019-07-09] MEDS: DUONEB NEB SCH ×2 (14:28→19:10)
[2019-07-09] MEDS: PRILOSEC PO SCH (16:44)
[2019-07-09] MEDS: TORADOL IVP SCH ×3 (17:24→20:45)
[2019-07-09] MEDS: ZOCOR PO SCH (20:32)
[2019-07-09] MEDS ORDERED: DESYREL PO SCH (21:00)
[2019-07-10] MEDS: DUONEB NEB SCH ×4 (04:20→19:35)
[2019-07-10] MEDS: PRILOSEC PO SCH ×2 (05:49→17:11)
[2019-07-10] MEDS: TORADOL IVP SCH ×3 (05:50→20:24)
[2019-07-10] MEDS ORDERED: ASPIRIN EC PO SCH (08:00)
[2019-07-10] MEDS ORDERED: CITRATE OF MAGNESIA PO STA (08:35)
--- NOTE | 2019-07-10 08:58 | PCM.PROG ---
Attending Provider: ATTENDING PROVIDER: Dr. CARISA RUIZ This patient is seen with Sushma Hickman, Nurse Practitioner. DATE OF SERVICE: 07/10/19 SUBJECTIVE: This 78 year old /WHITE F was hospitalized 07/09/19. The patient is resting comfortably. Only having small amount of liquid stool likely around area of impaction. Not complaining of any abdominal pain. She had recently been to ER twice for urinary retention. REVIEW OF SYSTEMS: CONSTITUTIONAL: No night sweats. Fatigue. No fever or chills. HEENT: Eyes: No visual changes. No eye pain. No eye discharge. ENT: No runny nose. No epistaxis. No sinus pain. No odynophagia. No congestion. RESPIRATORY: No cough, no congestion. No hemoptysis. No shortness of breath. CARDIOVASCULAR: No angina symptoms. No CHF symptoms. No atypical chest pain for CAD. No palpitations. No orthopnea.. GASTROINTESTINAL: No abdominal pain. No nausea or vomiting. Constipation. No hematemesis. No hematochezia. GENITOURINARY: No urgency. No frequency. No dysuria. No hematuria. No obstructive symptoms. No discharge. No pain. No significant abnormal bleeding. MUSCULOSKELETAL: No musculoskeletal pain; no joint swelling. NEUROLOGICAL: Awake, alert, oriented to person. No headache. No neck pain. No syncope. No seizures. No dizziness. PSYCHIATRIC: Not anxious. No depression. No suicidal thoughts. No homicidal thoughts. SKIN: No rash. No lesions. No wounds. ENDOCRINE: No unexplained weight loss. No weight gain. HEMATOLOGIC/LYMPHATIC: No anemia. No purpura. No petechiae. No prolonged or excessive bleeding. No palpable lymph nodes. PHYSICAL EXAMINATION: GENERAL: The patient is awake, alert and oriented to person, lying in bed in no distress. VITAL SIGNS: Temperature 98.2 F, Pulse 81, Respiratory Rate 18, BP 113/66, Pulse Ox 95% HEENT: Head normocephalic, atraumatic. Eyes: Extraocular muscles are intact. Pupils are equal, round and reactive to light and accommodation. Ears: No lesions. Nose appeared normal. Throat: No exudate or erythema. NECK: Supple. No JVD, no carotid bruit. No lymphadenopathy or thyromegaly. LUNGS: Diminished breath sounds. Clear to auscultation. Percussion note normal. Chest symmetrical. HEART: S1, S2, no S3. No murmurs. No cyanosis or clubbing. No ascites. Pulses: Dorsalis pedis and posterior tibial pulses +1 to +2 both sides. ABDOMEN: Soft. Non-tender. Bowel sounds active. No CVA tenderness. No mass felt. EXTREMITIES: No edema. Full range of motion of all extremities, equal. NEUROLOGIC: No focal deficit. Cranial nerves II through XII are grossly intact. No headache, no double vision or headache. SKIN: Not dry. Intact. Turgor-normal. LYMPHATIC: No palpable lymph nodes/no lymphedema. MUSCULOSKELETAL: Normal joints with no swelling. Muscle tone is normal. LAB REVIEW: 07/10/19 04:20 07/10/19 04:58 07/10/19 04:58: Sodium 138.7, Potassium 3.59, Chloride 107.7 H, Carbon Dioxide 27.8, Anion Gap 6.79, BUN 22.0 H, Creatinine 0.75, Estimated GFR (MDRD) 75.00, BUN/Creatinine Ratio 29.33, Glucose 110.4 H, Calcium 9.49, Total Bilirubin 0.38, AST 17.7, ALT 11.5, Alkaline Phosphatase 82.9 D, Total Protein 5.73 L, Albumin 3.19 L, Globulin 2.54, Albumin/Globulin Ratio 1.25 07/10/19 04:20: WBC 6.06, RBC 4.07 L, Hgb 12.1, Hct 39.1, MCV 96.1, MCH 29.7, MCHC 30.9 L, RDW Coeff of Giovanna 14.3, Plt Count 228, Immature Gran % (Auto) 0.3, Neut % (Auto) 66.8, Lymph % (Auto) 18.6, [place] % (Auto) 11.4 H, Eos % (Auto) 2.1, Baso % (Auto) 0.8, Immature Gran # (Auto) 0.0, Neut # (Auto) 4.0, Lymph # (Auto) 1.1, [place] # (Auto) 0.7, Eos # (Auto) 0.1, Baso # (Auto) 0.1 07/09/19 12:01: Puncture Site Rbrach, O2 Saturation 93.0 L, ABG pH 7.385, ABG pCO2 38.9, ABG pO2 67.0 L, ABG HCO3 23.3, ABG Total CO2 24, ABG Base Excess -2, FiO2 % 21.0 07/09/19 11:45: Stl Occult Blood (IFOB) Positive, Stool Occult Blood #2 No specimen received, Stool Occult Blood #3 No specimen received 07/09/19 09:23: Magnesium 2.13, Amylase 54.0, Lipase 97.8 07/09/19 09:23: Sodium 140.4, Potassium 3.97, Chloride 104.8, Carbon Dioxide 27.6, Anion Gap 11.97, BUN 20.4 H, Creatinine 0.73, Estimated GFR (MDRD) 77.00, BUN/Creatinine Ratio 27.94, Glucose 101.7, Calcium 9.97, Total Bilirubin 0.51, AST 23.7, ALT 14.2, Alkaline Phosphatase 109.6, Troponin I < 0.012, Total Protein 7.14, Albumin 3.94, Globulin 3.20, Albumin/Globulin Ratio 1.23 07/09/19 09:23: WBC 6.40, RBC 4.60, Hgb 13.7, Hct 42.6, MCV 92.6, MCH 29.8, MCHC 32.2, RDW Coeff of Giovanna 14.2, Plt Count 264, Immature Gran % (Auto) 0.3, Neut % (Auto) 81.3, Lymph % (Auto) 10.8, [place] % (Auto) 6.6, Eos % (Auto) 0.5, Baso % (Auto) 0.5, Immature Gran # (Auto) 0.0, Neut # (Auto) 5.2, Lymph # (Auto) 0.7, [place] # (Auto) 0.4, Eos # (Auto) 0.0, Baso # (Auto) 0.0 07/09/19 09:20: Urine Color Yellow, Urine Clarity Clear, Urine pH 7.0, Ur Specific [place] 1.025, Urine Protein Negative, Urine Glucose (UA) Negative, Urine Ketones 1+, Urine Blood Negative, Urine Nitrite Negative, Urine Bilirubin Negative, Urine Urobilinogen 0.2, Ur Leukocyte Esterase Negative ASSESSMENT: Please see below. 1. Fecal impaction 2. Constipation 3. Urinary retention 4. Recent UTI 5. History of CVA 6. History of PE 10-19 7. Chronic depression, bipolar sees psych PLAN: 1. Half bottle Mag Citrate 2. Enema by noon if no results 3. Will reconcile medications. Plan and coordination of the patient's care discussed in the presence of Supervisor Baking and nurse. SCRIBED BY: Lyric CASTRO scribed while in presence of service performed by Dr. Ruiz/Sushma Hickman APRN on 07/10/19 ([id number])
[2019-07-10] MEDS ORDERED: VITAMIN D PO SCH (09:00)
[2019-07-10] MEDS ORDERED: K-DUR PO SCH (09:00)
[2019-07-10] MEDS ORDERED: DESYREL PO SCH (09:00)
[2019-07-10] MEDS ORDERED: CELEXA PO SCH (09:00)
[2019-07-10] MEDS ORDERED: DYAZIDE PO SCH ×2 (09:00)
[2019-07-10] MEDS: MIRALAX PO SCH (09:10)
[2019-07-10] MEDS: SENNA PO SCH (09:11)
[2019-07-10] MEDS: ABILIFY PO SCH (09:12)
[2019-07-10] MEDS: COZAAR PO SCH (09:12)
[2019-07-10] MEDS: PAXIL PO SCH (10:43)
--- NOTE | 2019-07-10 13:33 | RS.OTINEVL ---
Subjective - Patient information Date of Evaluation: 07/10/19 Date of Arrival on Unit: 07/09/19 Admitted From:: Home Diagnosis: constipation, renal stone PRECAUTIONS: Does not always want to participate Usual Living Arrangement: With Spouse Living Arrangement Comments: has home health PT and ST Home Environment: House, Stairs (few), Rail Medical History: Hypertension, CVA/TIA, Arthritis Medical History Comments:: GERD, LATEX ALLERGY?: No Surgical History: Lumbar Spine Surgical History Comments:: carpal tunnel release Medications: see chart Subjective Information/ Patient Comments:: "I don't want to do this today." "I can't move my legs." - Level of function Prior to this admission, the patient could do the following:: Partially Dependent Ambulation Abilities prior to this admission: Pt was able to ambulate with her rolling walker to the toilet independently. Pt was living at home with her and was receiving home health from [facility] in [facility]. Current Level of Function: Partially Dependent Comments: Pt requires assistance for functional mobility and ADLS. Current Equipment Used at Home: rolling walker, walk in shower Pain Assessment - Pain Pain Score: 3 Side: bilateral Pain Location Body Site: rectum Pain Aggravating Factors: Changing Position, Sitting Pain Alleviating Factors: Medication, Lying Supine Interventions - Objective Patient Orientation: Person Current Interventions: IV's Observation: Pt appears to have a delay in responding to questions. Pt does not always want to participate in the evaluation. Pt has increased weakness and difficulty with sit to stand and ambulation with a RW. Pt is has limited shoulder flexion and weakness of BUE. Interventions - ROM Right Upper Extremity AROM: Slight limitation Left Upper Extremity AROM: Slight limitation - Strength Right Upper Extremity Strength: Mild Weakness Left Upper Extremity Strength: Mild Weakness - Sensation Right Upper Extremity Sensation: Intact/Normal Left Upper Extremity Sensation: Intact/Normal Balance - Sitting Balance Static Sitting Balance: Fair Dynamic Sitting Balance: Fair - Standing Balance Static Standing Balance: Poor Dynamic Standing Balance: Poor ADL Skills - Self Feeding Self Feeding: Independent - Dressing Dressing UE: Min Assist Dressing LE: Mod Assist - Toilet Management Toileting Management: Mod Assist Functional Mobility - Bed Mobility Rolling R/L: Min Assist Scooting: Min Assist Supine to Sit: Min Assist Sit to Supine: Min Assist - Transfers Sit to Stand: Min Assist Stand to Sit: Min Assist Stand Pivot Transfers: Min Assist PIO INDEX SCORE: . Additional Treatment Performed - Time with patient Length of Evaluation: 18 Total treatment time: 20 Activities Do you enjoy playing games?: No Would you be interested in leaving your room for activities?: No Would you enjoy group activities?: No Do you have difficulty with your vision?: Yes What types of things do you enjoy doing? Any Hobbies?: Watching TV, talking with . Patient Interests:: Watching Television, Visiting/Socializing Patient Education Patient Education: Education of diagnosis, Home Exercise Program, Home Safety, Education of Plan of Care Teaching Recipient: Patient Teaching Methods: Discussion Assessment Problem List:: Decreased level of function, Requires training/education, Decreased safety/Risk of falls, Weakness, Pain limits previous level of function Rehab Potential: Fair Further Therapy Indicated?: Yes Evaluation Complexity: HISTORY: Medium, EXAM OF BODY SYSTEMS: Medium, CLINICAL DECISION MAKING: Medium Patient's Goal(s): To go home. Short Term Goals - Goals GOAL 1: Pt to increase activity tolerance to 10 minutes for self cares. Goal to be met by: 07/14/19 GOAL 2: Pt to increase toilet transfer to Minimal assistance. Goal to be met by: 07/14/19 GOAL 3: Pt to increase BUE strength to 4/5. Goal to be met by: 07/14/19 GOAL 4: Pt to increase dyn. std. bal. to Fair-. Goal to be met by: 07/14/19 Operations Welder Goals GOAL 1: Pt to increase activity tolerance to 15 minutes for self cares. Goal to be met by: 07/17/19 GOAL 2: Pt to increase toilet transfer to CGA. Goal to be met by: 07/17/19 GOAL 3: Pt to increase BUE strength to 4+/5. Goal to be met by: 07/17/19 Plan Plan of Care: Therapeutic EX, Therapeutic Activity, Self-Care/Home Management Frequency of Treatment: 1-2 X day, as tolerated Duration of Treatment: 1 Week Anticipated Discharge Destination: Home Treatment Diagnosis (ICD 10 Codes): Muscle Weakness M62.81, Z74.1 Need for assistance with personal care. Has the Physician been added for Co-signature?: Yes
--- NOTE | 2019-07-10 14:48 | RS.PTINEVL ---
Subjective - Patient information Date of Evaluation: 07/10/19 Date of Arrival on Unit: 07/09/19 Admitted From:: Home Diagnosis: constipation, h/o fall, difficulty with urination Usual Living Arrangement: With Spouse Living Arrangement Comments: has home health PT and ST Home Environment: House, Stairs (few), Rail Medical History: Hypertension, CVA/TIA, Arthritis Medical History Comments:: GERD, LATEX ALLERGY?: No Surgical History: Lumbar Spine Surgical History Comments:: carpal tunnel release Medications: see chart Subjective Information/ Patient Comments:: pt states that she doesn't think she can walk. States that she is too weak. Required max encouragement to participate with PT. - Level of function Prior to this admission, the patient could do the following:: Partially Dependent Ambulation Abilities prior to this admission: pt had assist with personal care from home health Current Level of Function: Partially Dependent Current Equipment Used at Home: rolling walker, walk in shower Pain Assessement - Location abd Description: Aching Pain Behavior: Rubbing Site Interventions - Objective Patient Orientation: Person, Place Current Interventions: Telemetry, Obregon Catheter Observation: pt seen lying in bed. Range of Motion - ROM Right Upper Extremity AROM: WFL's Left Upper Extremity AROM: WFL's Right Lower Extremity AROM: WFL's Left Lower Extremity AROM: WFL's Muscle Strength - Muscle Strength Right Upper Extremity Strength: Mild Weakness (grossly) Left Upper Extremity Strength: Mild Weakness Right Lower Extremity Strength: Mild Weakness Left Lower Extremity Strength: Mild Weakness Sensation - Sensation Right Upper Extremity Sensation: Intact/Normal Left Upper Extremity Sensation: Intact/Normal Right Lower Extremity Sensation: Intact/Normal Left Lower Extremity Sensation: Intact/Normal Palpation Palpation Findings: Tenderness Comments:: in abdomen Balance - Sitting Balance and Reactions Static Sitting Balance: Fair Dynamic Sitting Balance: Poor Sitting Equilibrium Reactions: Delayed Left, Delayed Right Sitting Protective Reactions: Delayed Left, Delayed Right - Standing Balance and Reactions Static Standing Balance: Poor Dynamic Standing Balance: Poor Standing Equilibrium Reactions: Delayed Left, Delayed Right Standing Protective Reactions: Delayed Left, Delayed Right Functional Mobility - Bed Mobility Rolling R/L: Mod Assist, 1 person assist Supine to Sit: Mod Assist, 1 person assist - Transfers Sit to Stand: Min Assist, 1 person assist Stand to Sit: Min Assist, 1 person assist - Safety Awareness Safety Awareness: Fair PIO INDEX SCORE: n/a Ambulation - Ambulation Assistive Device Used: Rolling Walker Orthotic/Prosthetic Device: No Distance: 15ft Assistance needed with Ambulation: Min Assist, 1 person assist Gait Deviations: Forward posture, Short stride, Deviates from path Ambulation Comments: pt amb with flexed posture, decreased step length. Factors Affecting Ambulation: Decreased Balance, Weakness, Decreased Safety, Cognitive Status, Limited Endurance Treatment time - Time with patient Length of Evaluation: 21 Total treatment time: 26 Patient Education - Education Patient Education: Home Exercise Program, Education of Plan of Care Teaching Recipient: Patient Teaching Methods: Discussion Comments: discussion regarding POC Assessment - Assessment Problem List:: Decreased level of function, Requires training/education, Decreased safety/Risk of falls, Weakness, Pain limits previous level of function, Cognitive status limits abilities Rehab Potential: Fair Further Therapy Indicated?: Yes Candidate for Swing Bed for Therapy Services?: Feel pt may not be a candidate for swing bed due to cognitive deficits and resistance to participate. Evaluation Complexity: HISTORY: Medium, EXAM OF BODY SYSTEMS: Medium, CLINICAL PRESENTATION: Medium, CLINICAL DECISION MAKING: Medium Patient's Goal(s): pt unable to verbalize goals. goal is for patient to return home with home health. Short Term Goals GOAL #1: pt demonstrate rolling and bridging with CGA Goal to be met by: 07/12/19 GOAL #2: Transferred sup to/from sit min to cGA Goal to be met by: 07/12/19 GOAL #3: Sit to/from stand CGA Goal to be met by: 07/12/19 GOAL #4: pt amb 50ft with rolling walker, with CGA no LOB Goal to be met by: 07/12/19 Medical Sales Goals GOAL #1: pt transfer sup to/from sit to/from stand CGA Goal to be met by: 07/14/19 GOAL #2: pt amb functional household distances with RWX and CGA Goal to be met by: 07/14/19 GOAL #3: Improve BLE strength 4/5 Goal to be met by: 07/14/19 Plan Plan of Care: Therapeutic EX, Therapeutic Activity Other:: gait training Frequency of Treatment: 1-2 X day, as tolerated Duration of Treatment: 5 days Anticipated Discharge Destination: Home (with home health) Treatment Diagnosis (ICD 10 Codes): balance impaired R26.81. difficulty walking R 26.81. weakness M62.81 Has the Physician been added for Co-signature?: Yes
--- NOTE | 2019-07-10 14:55 | PN ---
DATE OF SERVICE: 07/09/19 SUBJECTIVE: The patient was hospitalized today with severe constipation, abdominal pain. The patient was noted to have more or less like fecal impaction on CT scan partially removed in the emergency room. She was hospitalized for further treatment. The patient is oriented to person. She doesn't remember the name of her medications. The patient was seen on the floor in Room 116. PHYSICAL EXAMINATION: HEENT: Head normocephalic, atraumatic. Eyes: Extraocular muscles are intact. Pupils are equal, round and reactive to light and accommodation. Ears: No lesions. Nose appeared normal. Throat: No exudate or erythema. NECK: Supple. No JVD, no carotid bruit. No lymphadenopathy or thyromegaly. LUNGS: Clear to auscultation. Percussion note normal. Chest symmetrical. HEART: S1, S2, no S3. No murmurs. No cyanosis or clubbing. No ascites. Pulses: Dorsalis pedis and posterior tibial pulses +1 to +2 bilaterally. ABDOMEN: Soft. Not distended. Nontender. Bowel sounds active. No CVA tenderness. No mass felt. EXTREMITIES: No edema. Full range of motion of all extremities, equal. NEUROLOGIC: The patient was oriented to person. No focal deficit. Cranial nerves II through XII are grossly intact. No headache, no double vision or headache. SKIN: Not dry. Intact. Turgor - normal. LYMPHATIC: No palpable lymph nodes/no lymphedema. MUSCULOSKELETAL: Normal joints with no swelling. Muscle tone is normal. ASSESSMENT: 1. Fecal impaction seems to have been partially removed. PLAN: 1. Will give Fleets enema. 2. IV fluids for hydration. 3. Continue other medications. Will continue Abilify, Celexa, Cozaar. Will hold Simvastatin and other medications. CONDITION: Stable. TIME SPENT: More than 30 minutes. Plan and coordination of the patient's care discussed in the presence of nurse. APURVA
[2019-07-10] MEDS: ELIQUIS PO SCH (20:22)
[2019-07-10] MEDS: ZOCOR PO SCH (20:24)
[2019-07-11] MEDS: DUONEB NEB SCH ×4 (04:25→20:45)
[2019-07-11] MEDS: TORADOL IVP SCH ×3 (05:27→21:00)
[2019-07-11] MEDS: PRILOSEC PO SCH ×2 (05:51→17:30)
--- NOTE | 2019-07-11 08:38 | PCM.PROG ---
Attending Provider: ATTENDING PROVIDER: Dr. CARISA HUGGINS This patient is seen with Sushma Hickman, Nurse Practitioner. DATE OF SERVICE: 07/11/19 SUBJECTIVE: This 78 year old /WHITE F was hospitalized 07/09/19. The patient is resting comfortably. She had small bowel movement but still complaining of abdominal pain which is chronic. She refused therapy yesterday. Refuse Magnesium Citrate. The patient continues to refuse referral for lesion in the chest. The feels like she has given up. REVIEW OF SYSTEMS: CONSTITUTIONAL: No night sweats. Fatigue. No fever or chills. HEENT: Eyes: No visual changes. No eye pain. No eye discharge. ENT: No runny nose. No epistaxis. No sinus pain. No odynophagia. No congestion. RESPIRATORY: No cough, no congestion. No hemoptysis. No shortness of breath. CARDIOVASCULAR: No angina symptoms. No CHF symptoms. No atypical chest pain for CAD. No palpitations. No orthopnea.. GASTROINTESTINAL: No abdominal pain. No nausea or vomiting. Constipation. No hematemesis. No hematochezia. GENITOURINARY: No urgency. No frequency. No dysuria. No hematuria. No obstructive symptoms. No discharge. No pain. No significant abnormal bleeding. MUSCULOSKELETAL: No musculoskeletal pain; no joint swelling. Weakness. NEUROLOGICAL: Awake, alert, oriented to time, place and person. No headache. No neck pain. No syncope. No seizures. No dizziness. PSYCHIATRIC: Not anxious. No depression. No suicidal thoughts. No homicidal thoughts. SKIN: No rash. No lesions. No wounds. ENDOCRINE: No unexplained weight loss. No weight gain. HEMATOLOGIC/LYMPHATIC: No anemia. No purpura. No petechiae. No prolonged or excessive bleeding. No palpable lymph nodes. PHYSICAL EXAMINATION: GENERAL: The patient is awake, alert and oriented, lying in bed in no distress. VITAL SIGNS: Temperature 97.8 F, Pulse 75, Respiratory Rate 18, BP 110/56, Pulse Ox 93% HEENT: Head normocephalic, atraumatic. Eyes: Extraocular muscles are intact. Pupils are equal, round and reactive to light and accommodation. Ears: No lesions. Nose appeared normal. Throat: No exudate or erythema. NECK: Supple. No JVD, no carotid bruit. No lymphadenopathy or thyromegaly. LUNGS: Diminished breath sounds. Clear to auscultation. Percussion note normal. Chest symmetrical. HEART: S1, S2, no S3. No murmurs. No cyanosis or clubbing. No ascites. P ulses: Dorsalis pedis and posterior tibial pulses +1 to +2 both sides. ABDOMEN: Soft. Non-tender. Bowel sounds active. No CVA tenderness. No mass felt. EXTREMITIES: No edema. Full range of motion of all extremities, equal. NEUROLOGIC: No focal deficit. Cranial nerves II through XII are grossly intact. No headache, no double vision or headache. SKIN: Not dry. Intact. Turgor-normal. LYMPHATIC: No palpable lymph nodes/no lymphedema. MUSCULOSKELETAL: Normal joints with no swelling. Muscle tone is normal. LAB REVIEW: 07/11/19 04:40 07/11/19 04:40 07/11/19 04:40: Sodium 139.0, Potassium 4.17, Chloride 104.1, Carbon Dioxide 31.7 H, Anion Gap 7.37, BUN 25.4 H, Creatinine 1.16, Estimated GFR (MDRD) 45.00, BUN/Creatinine Ratio 21.89, Glucose 104.5, Calcium 9.64, Total Bilirubin 0.30, AST 15.3, ALT 11.6, Alkaline Phosphatase 88.7, Total Protein 5.96 L, Albumin 3.31 L, Globulin 2.65, Albumin/Globulin Ratio 1.24 07/11/19 04:40: WBC 7.27, RBC 4.09 L, Hgb 11.9 L, Hct 39.1, MCV 95.6, MCH 29.1, MCHC 30.4 L, RDW Coeff of Giovanna 14.5, Plt Count 247, Immature Gran % (Auto) 0.4, Neut % (Auto) 71.3, Lymph % (Auto) 14.9, [place] % (Auto) 10.3 H, Eos % (Auto) 2.5, Baso % (Auto) 0.6, Immature Gran # (Auto) 0.0, Neut # (Auto) 5.2, Lymph # (Auto) 1.1, [place] # (Auto) 0.8, Eos # (Auto) 0.2, Baso # (Auto) 0.0 ASSESSMENT: Please see below. 1. Constipation 2. Urinary retention 3. History of PE 4. Depression 5. Right lung mass, the patient refuses surgery referral to [place]. Dr. Yao states he is unable to further evaluate. constip PLAN: 1. Discontinue Obregon Catheter 2. Will attempt to get her up 3. Make Miralaz twice a day Plan and coordination of the patient's care discussed in the presence of Spray Painter Helper and nurse. PROGNOSIS: Poor SCRIBED BY: LILIBETH BAZZI Sports Team Marketing Intern scribed while in presence of service performed by Dr. Huggins/Sushma Hickman APRN on 07/11/19 ([id number])
[2019-07-11] MEDS: ABILIFY PO SCH (08:48)
[2019-07-11] MEDS: ASPIRIN CHEWABLE PO SCH (08:49)
[2019-07-11] MEDS: PAXIL PO SCH (08:49)
[2019-07-11] MEDS: SENNA PO SCH (08:50)
[2019-07-11] MEDS: COZAAR PO SCH (08:50)
[2019-07-11] MEDS: ELIQUIS PO SCH ×2 (08:51→21:02)
[2019-07-11] MEDS: K-DUR PO SCH (08:51)
[2019-07-11] MEDS: MIRALAX PO SCH ×2 (08:56→21:00)
[2019-07-11] MEDS: ZOCOR PO SCH (20:59)
[2019-07-12] MEDS: DUONEB NEB SCH ×4 (04:40→20:25)
[2019-07-12] MEDS: TORADOL IVP SCH ×3 (05:03→20:54)
[2019-07-12] MEDS: PRILOSEC PO SCH ×2 (05:43→16:47)
[2019-07-12] MEDS: ASPIRIN CHEWABLE PO SCH (08:45)
[2019-07-12] MEDS: SENNA PO SCH (08:46)
[2019-07-12] MEDS: PAXIL PO SCH (08:46)
[2019-07-12] MEDS: COZAAR PO SCH (08:46)
[2019-07-12] MEDS: MIRALAX PO SCH ×2 (08:47→20:54)
[2019-07-12] MEDS: ABILIFY PO SCH (08:47)
[2019-07-12] MEDS: K-DUR PO SCH (08:47)
[2019-07-12] MEDS: ELIQUIS PO SCH ×2 (08:48→20:55)
--- NOTE | 2019-07-12 09:14 | PCM.PROG ---
Attending Provider: ATTENDING PROVIDER: Dr. CARISA RUIZ DATE OF SERVICE: 07/12/19 SUBJECTIVE: This 78 year old /WHITE F was hospitalized 07/09/19 with obstipation and constipation. The patient still has not have a satisfactory bowel movement. We will give her Fleets enema. She is refusing to take anything by mouth. The is in the room as usual. REVIEW OF SYSTEMS: CONSTITUTIONAL: No night sweats. No fatigue, malaise, lethargy. No fever or chills. HEENT: Eyes: No visual changes. No eye pain. No eye discharge. ENT: No runny nose. No epistaxis. No sinus pain. No odynophagia. No congestion. RESPIRATORY: No cough, no congestion. No hemoptysis. No shortness of breath. CARDIOVASCULAR: No angina symptoms. No CHF symptoms. No atypical chest pain for CAD. No palpitations. No orthopnea.. GASTROINTESTINAL: No abdominal pain. No nausea or vomiting. No diarrhea or constipation. No hematemesis. No hematochezia. GENITOURINARY: No urgency. No frequency. No dysuria. No hematuria. No obstructive symptoms. No discharge. No pain. No significant abnormal bleeding. MUSCULOSKELETAL: No musculoskeletal pain; no joint swelling. NEUROLOGICAL: The patient is more awake and alert. No headache. No neck pain. No syncope. No seizures. No dizziness. PSYCHIATRIC: Not anxious. No depression. No suicidal thoughts. No homicidal thoughts. SKIN: No rash. No lesions. No wounds. ENDOCRINE: No unexplained weight loss. No weight gain. HEMATOLOGIC/LYMPHATIC: No anemia. No purpura. No petechiae. No prolonged or excessive bleeding. No palpable lymph nodes. PHYSICAL EXAMINATION: GENERAL: The patient is awake, alert and oriented, lying in bed in no distress. VITAL SIGNS: Temperature 98.8 F, Pulse 76, Respiratory Rate 18, BP 138/69, Pulse Ox 100% HEENT: Head normocephalic, atraumatic. Eyes: Extraocular muscles are intact. Pupils are equal, round and reactive to light and accommodation. Ears: No lesions. Nose appeared normal. Throat: No exudate or erythema. NECK: Supple. No JVD, no carotid bruit. No lymphadenopathy or thyromegaly. LUNGS: Decreased breath sounds. Clear to auscultation. Percussion note normal. Chest symmetrical. HEART: S1, S2, no S3. Regular rate. No murmurs. No cyanosis or clubbing. No ascites. Pulses: Dorsalis pedis and posterior tibial pulses +1 to +2 both sides. ABDOMEN: Soft. Non-tender. Bowel sounds active. No CVA tenderness. No mass felt. EXTREMITIES: No edema. Full range of motion of all extremities, equal. NEUROLOGIC: No focal deficit. Cranial nerves II through XII are grossly intact. No headache, no double vision or headache. SKIN: Warm and dry. Intact. Turgor-normal. LYMPHATIC: No palpable lymph nodes/no lymphedema. MUSCULOSKELETAL: Normal joints with no swelling. Muscle tone is normal. LAB REVIEW: 07/12/19 05:10 07/12/19 05:10 07/12/19 05:10: Sodium 137.8, Potassium 4.21, Chloride 105.9, Carbon Dioxide 27.5, Anion Gap 8.61, BUN 27.8 H, Creatinine 0.75, Estimated GFR (MDRD) 75.00, BUN/Creatinine Ratio 37.06, Glucose 120.0 H, Calcium 9.27, Total Bilirubin 0.26, AST 13.2 L, ALT 10.0, Alkaline Phosphatase 93.4, Total Protein 5.94 L, Albumin 3.20 L, Globulin 2.74, Albumin/Globulin Ratio 1.16 07/12/19 05:10: WBC 7.42, RBC 3.89 L, Hgb 11.6 L, Hct 36.9 L, MCV 94.9, MCH 29.8, MCHC 31.4 L, RDW Coeff of Giovanna 14.5, Plt Count 240, Immature Gran % (Auto) 0.4, Neut % (Auto) 70.4, Lymph % (Auto) 17.7, [place] % (Auto) 8.6, Eos % (Auto) 2.2, Baso % (Auto) 0.7, Immature Gran # (Auto) 0.0, Neut # (Auto) 5.2, Lymph # (Auto) 1.3, [place] # (Auto) 0.6, Eos # (Auto) 0.2, Baso # (Auto) 0.1 ASSESSMENT: Please see below. 1. Obstipation/Constipation 2. Urinary retention PLAN: 1. Have the patient up and about with help 2. Fleet enema 3. Oral intake and appetite is a lot better 4. Cardiovascular status is stable. 5. Discontinue Obregon Catheter 6. Discontinue telemetry Plan and coordination of the patient's care discussed in the presence of Evaporator Operator Molasses and nurse. SCRIBED BY: Lyric CASTRO scribed while in presence of service performed by Dr. CARISA RUIZ on 07/12/19 ([id number])
--- NOTE | 2019-07-12 13:46 | HP ---
DATE OF SERVICE: 07/09/2019 REASON FOR HOSPITALIZATION/HISTORY OF PRESENT ILLNESS: 78 year old white female who presents to the emergency room complaining she having difficulty urinating with lower abdominal pain and slight rectal bleeding. 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 She has been seeing Dr. Yao. He has advised her to go to [place] for biopsy and at this time the patient refuses any type of referral for biopsy. She has also been seeing Dr. Castañeda. Chronic abdominal pain Left shoulder pain Vertigo GERD Hypertension Coronary artery disease Dyslipidemia CVA with right sided weakness Depression Bipolar disorder, See Dr. Powers in [place] History of nephrolithiasis Dyslipidemia Mild Carotid stenosis History of noncompliance with lifestyle, diet, medications and followup. PAST SURGICAL HISTORY: Back surgery 10/[address] Espinoza C spine surgery 05/21 Dr. Espinoza Cholecystectomy in 2011 Anterior cervical diske[place] [address] Espinoza Appendectomy Carpal tunnel release Colonoscopy last in 2015 Endoscopy in 2018 Lumbar laminectomy in March of 2017 REVIEW OF SYSTEMS: CONSTITUTIONAL: No night sweats. Fatigue. No fever or chills. Weakness. HEENT: Eyes: No visual changes. No eye pain. No eye discharge. ENT: No runny nose. No epistaxis. No sinus pain. No sore throat. No odynophagia. No ear pain. No congestion. RESPIRATORY: No cough, no congestion. No hemoptysis. No shortness of breath. CARDIOVASCULAR: No angina symptoms. No CHF symptoms. No atypical chest pain for CAD. No palpitations. No PND. No orthopnea. GASTROINTESTINAL: Abdominal pain. No nausea or vomiting. Constipation. No hematemesis. No hematochezia. GENITOURINARY: No urgency. No frequency. No dysuria. No hematuria. No obstructive symptoms. No discharge. No pain. No significant abnormal bleeding. Urinary retention. MUSCULOSKELETAL: No musculoskeletal pain. No joint swelling. No arthritis. NEUROLOGICAL: No headache. No neck pain. No syncope. No seizures. No dizziness. PSYCHIATRIC: Not anxious. No depression. No suicidal thoughts. No homicidal thoughts. SKIN: No rash. No lesions. No wounds. ENDOCRINE: No unexplained weight loss. No weight gain. HEMATOLOGIC/LYMPHATIC: No anemia. No purpura. No petechiae. No prolonged or excessive bleeding. No palpable lymph nodes. PERSONAL/FAMILY/SOCIAL HISTORY: She is a nonsmoker. She is still and lives with her . No alcohol or illicit drug use. MEDICATIONS: Simvastatin 40mg PO bedtime K-Dur 20meq PO daily Omeprazole 20mg PO BID Losartan 100mg PO daily Hydrocodone/Acetaminophen 7.5-325 tablet PO BID Abilify 5mg PO daily Eliquis 5mg PO BID Aspirin 81mg PO daily Paxil 20mg PO daily ALLERGIES: No known allergies. PHYSICAL EXAMINATION: GENERAL: The patient is drowsy, oriented to person and place. VITAL SIGNS: Temperature 98.9, heart rate 81, respiratory rate 16, blood pressure 149/83 and pulse ox 94% on room air. HEENT: Head normocephalic, atraumatic. Eyes: Extraocular muscles are intact. Pupils are equal, round and reactive to light and accommodation. Ears: No lesions. Nose appeared normal. Throat: No exudate or erythema. NECK: Supple. No JVD, no carotid bruit. No lymphadenopathy or thyromegaly. LUNGS: Diminished breath sounds bilaterally. Clear to auscultation. Percussion note normal. Chest symmetrical. HEART: S1, S2, no S3. No murmur. No cyanosis or clubbing. No ascites. Pulses: Dorsalis pedis and posterior tibial pulses +1 to +2 bilaterally. ABDOMEN: Soft. Generalized abdominal pain with generalized tenderness. No rebound tenderness. Nondistended. Bowel sounds active. No CVA tenderness. No mass felt. EXTREMITIES: No edema. Full range of motion of all extremities, equal. NEUROLOGIC: No focal deficit. Cranial nerves II through XII are grossly intact. No headache, no double vision or headache. SKIN: Not dry. Intact. Turgor - normal. LYMPHATIC: No palpable lymph nodes/no lymphedema. MUSCULOSKELETAL: Normal joints with no swelling. Muscle tone is normal. LABS: CT of the abdomen and pelvis shows no bowel obstruction. Mild distention of the rectum by fecal material representing fecal impaction. Increase in size of left lower lobe pulmonary nodular. Diverticular disease without acute inflammation. Nonobstructing Nephrolithiasis within the left kidney. WBC 6.4, hgb 13.7, hct 42.6, plt count 264, sodium 140, potassium 3.9, BUN 20.4, creatinine 0.73, glucose 101. Urine is +1 ketones otherwise negative. Amylase 54, lipase 97. ASSESSMENT: 1. Constipation with fecal impaction 2. Urinary retention, the patient is unable to void. Cath received 800cc of urine 3. Prior CVA with hemiparesis 4. History of bilateral PE in 03/23 5. Hypertension 6. Dyslipidemia 7. Bipolar and manic depression, sees Dr. Powers in [place] 8. History of noncompliance with medications, diet, lifestyle and followup. 9. Known pulmonary lesion, left lobe. She has been seeing Dr. Castañeda and Dr. Yao. Has refused referral to [facility] or some other facility by Dr. Yao which he advised PLAN: 1. We will admit 2. Routine telemetry orders 3. No cardiac markers 4. CBC and CMP daily 5. Normal Saline IV at 75cc an hour 6. Leave the Obregon in 7. Urine for culture and sensitivity 8. Continue home medication s 9. Hold Butler due to constipation 10. Placed on Miralax one cap full 17 gram BID 11. Fleets enema 12. Continue home medications 13. Magnesium Citrate half a bottle. 14. Will follow closely. TIME SPENT: More than 70 minutes. MTDD
[2019-07-12] MEDS: ZOCOR PO SCH (20:54)
[2019-07-13 04:50] VITALS: BP 161/74; TEMP 97.7
[2019-07-13] MEDS: DUONEB NEB SCH ×2 (05:00→10:09)
[2019-07-13] MEDS: PRILOSEC PO SCH (05:57)
[2019-07-13] MEDS: TORADOL IVP SCH (05:57)
[2019-07-13] MEDS: ABILIFY PO SCH (08:28)
--- NOTE | 2019-07-13 08:28 | PCM.PROG ---
Attending Provider: ATTENDING PROVIDER: Dr. CARISA HUGGINS This patient is seen with Sushma Hickman, Nurse Practitioner. DATE OF SERVICE: 07/13/19 SUBJECTIVE: This 78 year old /WHITE F was hospitalized 07/09/19. The patient is resting comfortably. Abdominal pain has resolved. She had two very large bowel movements. She has external hemorrhoid which had bright red scant bleeding. Hgb is stable. Voiding on her own. Bladder showed only 130cc this morning. I believe severe constipation was contributing to the urinary retention. REVIEW OF SYSTEMS: CONSTITUTIONAL: No night sweats. Fatigue. No fever or chills. Weakness. HEENT: Eyes: No visual changes. No eye pain. No eye discharge. ENT: No runny nose. No epistaxis. No sinus pain. No odynophagia. No congestion. RESPIRATORY: No cough, no congestion. No hemoptysis. No shortness of breath. CARDIOVASCULAR: No angina symptoms. No CHF symptoms. No atypical chest pain for CAD. No palpitations. No orthopnea.. GASTROINTESTINAL: No abdominal pain. No nausea or vomiting. No diarrhea or constipation. No hematemesis. No hematochezia. GENITOURINARY: No urgency. No frequency. No dysuria. No hematuria. No obstructive symptoms. No discharge. No pain. No significant abnormal bleeding. MUSCULOSKELETAL: No musculoskeletal pain; no joint swelling. NEUROLOGICAL: Awake, alert, oriented to time, place and person. No headache. No neck pain. No syncope. No seizures. No dizziness. PSYCHIATRIC: Not anxious. No depression. No suicidal thoughts. No homicidal thoughts. SKIN: No rash. No lesions. No wounds. ENDOCRINE: No unexplained weight loss. No weight gain. HEMATOLOGIC/LYMPHATIC: No anemia. No purpura. No petechiae. No prolonged or excessive bleeding. No palpable lymph nodes. PHYSICAL EXAMINATION: GENERAL: The patient is awake, alert and oriented, lying in bed in no distress. VITAL SIGNS: Temperature 97.7 F, Pulse 71, Respiratory Rate 18, BP 161/74, Pulse Ox 94% HEENT: Head normocephalic, atraumatic. Eyes: Extraocular muscles are intact. Pupils are equal, round and reactive to light and accommodation. Ears: No lesions. Nose appeared normal. Throat: No exudate or erythema. NECK: Supple. No JVD, no carotid bruit. No lymphadenopathy or thyromegaly. LUNGS: Diminished breath sounds. Clear to auscultation. Percussion note normal. Chest symmetrical. HEART: S1, S2, no S3. No murmurs. No cyanosis or clubbing. No ascites. Pulses: Dorsalis pedis and posterior tibial pulses +1 to +2 both sides. ABDOMEN: Soft. Non-tender. Bowel sounds active. No CVA tenderness. No mass felt. EXTREMITIES: No edema. Full range of motion of all extremities, equal. NEUROLOGIC: No focal deficit. Cranial nerves II through XII are grossly intact. No headache, no double vision or headache. SKIN: Not dry. Intact. Turgor-normal. LYMPHATIC: No palpable lymph nodes/no lymphedema. MUSCULOSKELETAL: Normal joints with no swelling. Muscle tone is normal. LAB REVIEW: 07/13/19 04:50 07/13/19 04:50 07/13/19 04:50: Sodium 138.6, Potassium 4.29, Chloride 104.3, Carbon Dioxide 31.4 H, Anion Gap 7.19, BUN 23.5 H, Creatinine 0.75, Estimated GFR (MDRD) 75.00, BUN/Creatinine Ratio 31.33, Glucose 103.4, Calcium 9.51, Total Bilirubin 0.30, AST 14.4, ALT 9.9, Alkaline Phosphatase 91.5, Total Protein 6.05 L, Albumin 3.25 L, Globulin 2.80, Albumin/Globulin Ratio 1.16 07/13/19 04:50: WBC 6.87, RBC 4.02 L, Hgb 11.8 L, Hct 37.9, MCV 94.3, MCH 29.4, MCHC 31.1 L, RDW Coeff of Giovanna 14.3, Plt Count 250, Immature Gran % (Auto) 0.1, Neut % (Auto) 72.0, Lymph % (Auto) 15.3, Payne % (Auto) 10.0, Eos % (Auto) 2.0, Baso % (Auto) 0.6, Immature Gran # (Auto) 0.0, Neut # (Auto) 4.9, Lymph # (Auto) 1.1, Payne # (Auto) 0.7, Eos # (Auto) 0.1, Baso # (Auto) 0.0 ASSESSMENT: Please see below. 1. Constipation, fecal impaction improved 2. Urinary retention, resolved 3. Lung mass being followed by Dr. Castañeda and Dr. Yao 4. History of PE 5. Chronic pain PLAN: 1. Discharge home 2. Encourage fluids 3. Continue Miralax one cap BID 4. Continue Senna one daily 5. The patient's pain has been controlled with minimal amount of [place] while at the hospital. We will decrease to 5mg BID PRN as this maybe contributing to constipation. 6. The patient has an appointment Urology in January and an appointment Dr. Castañeda in August 14. Plan and coordination of the patient's care discussed in the presence of Chicken Vaccinator and nurse. SCRIBED BY: Lyric CASTRO scribed while in presence of service performed by Dr. Huggins/Sushma Hickman APRN on 07/13/19 ([id number])
[2019-07-13] MEDS: PAXIL PO SCH (08:29)
[2019-07-13] MEDS: SENNA PO SCH (08:29)
[2019-07-13] MEDS: COZAAR PO SCH (08:29)
[2019-07-13] MEDS: K-DUR PO SCH (08:30)
[2019-07-13] MEDS: MIRALAX PO SCH (08:30)
[2019-07-13] MEDS: ASPIRIN CHEWABLE PO SCH (08:30)
[2019-07-13] MEDS: ELIQUIS PO SCH (08:33)
--- NOTE | 2019-07-13 08:40 | PN ---
DATE OF SERVICE: 07/11/19 SUBJECTIVE: Ms. Man was seen and examined with the nurse practitioner. The patient's condition seems to be improved some with improvement in the hydration status. Her dementia status still is the same, persists. The family was explained about the finding on the lung. She is being followed by cardiac rehabilitation specialist. The fecal impaction part seems to have resolved. There is no active GI bleed. Hemoglobin and hematocrit is stable. The patient is on Eliquis with history of atrial fibrillation. She will be restarted on it. The patient's list for medication is incomplete and incorrect. The is also sick, unable to take care of himself with multiple medical problems. He tries to take care of the who has dementia and schizophrenia and debilitated status physically with multiple medical problems. TIME SPENT: More than 30 minutes. Plan and coordination of the patient's care discussed in the presence of nurse. [email or web address] MTDD
--- NOTE | 2019-07-13 11:55 | CM.DICTOOL ---
ADMISSION: 07/09/19 12:00 DISCHARGE: JULY 13, 2019 DATE OF SERVICE: 07/13/19 FINAL DIAGNOSIS CONSTIPATION/OBSTIPATION URINARY RETENTION (DR. 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 OLSEN BACK SURGERY:CERVICAL DISCECTOMY, 2017 (STRENGE) LUMBAR LAMINECTOMY, 2017 CARPAL TUNNEL SURGERY SCOLIOSIS LAST VITALS Temp Pulse Resp BP Pulse Ox 97.7 F 71 18 161/74 H 93 L 07/13/19 04:49 07/13/19 04:49 07/13/19 04:49 07/13/19 04:49 07/13/19 10:00 TAKE THESE MEDICATIONS AT HOME Hydrocodone Bitart/Acetaminophen ([place] 5-325) 1 tab PO BID PRN PRN Reason: Severe pain Apixaban (Eliquis) 5 mg PO BID [facility] Last Admin: 07/13/19 08:33 Dose: 5 mg Documented by: Aripiprazole (Abilify) 5 mg PO DAILY [facility] Last Admin: 07/13/19 08:28 Dose: 7.5 mg Documented by: Aspirin (Aspirin Chewable) 81 mg PO DAILYWM [facility] Last Admin: 07/13/19 08:30 Dose: 81 mg Documented by: Losartan Potassium (Cozaar) 100 mg PO DAILY [facility] Last Admin: 07/13/19 08:29 Dose: 100 mg Documented by: Omeprazole (Prilosec) 20 mg PO BIDAC [facility] Last Admin: 07/13/19 05:57 Dose: 20 mg Documented by: Paroxetine HCl (Paxil) 20 mg PO DAILY [facility] Last Admin: 07/13/19 08:29 Dose: 20 mg Documented by: Polyethylene Glycol (Miralax) 17 gm PO BID [facility] Last Admin: 07/13/19 08:30 Dose: 17 gm Documented by: Potassium Chloride (K-Dur) 20 meq PO DAILYWM [facility] Last Admin: 07/13/19 08:30 Dose: 20 meq Documented by: Sennosides (Senna) 8.6 mg PO DAILY [facility] Last Admin: 07/13/19 08:29 Dose: 8.6 mg Documented by: Simvastatin (Zocor) 40 mg PO BEDTIME [facility] Last Admin: 07/12/19 20:54 Dose: 40 mg Documented by: ALLERGIES No Known Allergies Allergy (Verified 07/09/19 08:52) DISCONTINUED MEDICATIONS TRAZODONE NORCO 7.5 MG DYAZIDE NEW PRESCRIPTIONS: MIRALAX 17 GRAMS BID IN WATER SENNA 8.6 MG DAILY NORCO 5-325 MG BID PRN SMOKING: NOT APPLICABLE DISEASE SPECIFIC EDUCATION: ACTIVITY NEW MEDICATIONS APPOINTMENTS CONSTIPATION LAB REVIEW: 07/13/19 04:50 07/13/19 04:50 07/13/19 04:50: Sodium 138.6, Potassium 4.29, Chloride 104.3, Carbon Dioxide 31.4 H, Anion Gap 7.19, BUN 23.5 H, Creatinine 0.75, Estimated GFR (MDRD) 75.00, BUN/Creatinine Ratio 31.33, Glucose 103.4, Calcium 9.51, Total Bilirubin 0.30, AST 14.4, ALT 9.9, Alkaline Phosphatase 91.5, Total Protein 6.05 L, Albumin 3.25 L, Globulin 2.80, Albumin/Globulin Ratio 1.16 07/13/19 04:50: WBC 6.87, RBC 4.02 L, Hgb 11.8 L, Hct 37.9, MCV 94.3, MCH 29.4, MCHC 31.1 L, RDW Coeff of Giovanna 14.3, Plt Count 250, Immature Gran % (Auto) 0.1, Neut % (Auto) 72.0, Lymph % (Auto) 15.3, Citrus % (Auto) 10.0, Eos % (Auto) 2.0, Baso % (Auto) 0.6, Immature Gran # (Auto) 0.0, Neut # (Auto) 4.9, Lymph # (Auto) 1.1, Citrus # (Auto) 0.7, Eos # (Auto) 0.1, Baso # (Auto) 0.0 PLAN: DISCHARGE HOME WITH SPOUSE DIET: REGULAR DIET TOLERATED BRAN FLAKES SUGGESTED DAILY FULL GLASS OF WATER AT MEALS ACTIVITY: UP IN CHAIR FOR MEALS INCREASE ACTIVITY TOLERATED CONTINUE [facility]IDENT[facility] HOME HEALTH SERVICES FOR: SNF VISITS; BOWEL AND BLADDER ROUTINES, MEDICATION MANAGEMENT AND COMPLIANCE, NUTRITION PHYSICAL AND OCCUPATIONAL THERAPY EVALUATIONS AND TREATMENT AN APPOINTMENT IS SCHEDULED WITH DR. RUIZ/CHAPARRITA ROJAS APRN ON July AT 3 PM AN APPOINTMENT IS SCHEDULED WITH DR. HANNAH GROSSMAN, [facility] ON AT 9 AM AN APPOINTMENT IS SCHEDULED WITH DR. Edwin HUGHES, [facility] ON January AT 1:10 PM CODE STATUS: DNR MRS. MANZO IS ALERT TO PERSON, PLACE. SHE IS ABLE TO FOLLOW DIRECTIONS AND ANSWER QUESTIONS APPROPRIATELY, BUT WITH SOME HESITATION DUE TO PREVIOUS CVA. SHE IS PARTIALLY DEPENDENT FOR BATHING AND DRESSING. SHE IS ABLE TO FEED HERSELF AND HAS A GOOD APPETITE OF 25-100%. SHE IS CONTINENT OF BOWEL AND BLADDER. THE PATIENT HAD THREE (3) LARGE BOWEL MOVEMENTS TWO TODAY AND ONE LAST NIGHT. SHE VOIDED WITH ALL BOWEL MOVEMENTS. SHE USES THE BEDSIDE COMMODE AND TRANSFERS WITH ASSISTANCE OF 1 STAFF MEMBER. SHE REQUIRES ASSISTANCE OF 2 STAFF MEMBERS AND USE OF A ROLLING WALKER FOR AMBULATION. HER GAIT IS SLOW AND STEADY, BUT WITH REMINDERS TO LOOK FORWARD AND NOT AT FEET WHEN WALKING. HYDRATION STATUS HAS IMPROVED. SKIN TURGOR IS GOOD. SKIN IS INTACT, BUT AREAS OF DRY SCALY SKIN ARE NOTED ON THE FACE AND SCALP. MD CHAPARRITA JEFFERY APRN
--- NOTE | 2019-07-14 13:07 | DS ---
DATE OF SERVICE: 07/13/19 FINAL DIAGNOSIS: 1. CONSTIPATION/OBSTIPATION 2. URINARY RETENTION (DR. Edwin HUGHES, UROLOGY) 3. RECENT UTI (TREATED WITH CIPRO) 4. HISTORY OF CVA 5. 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 CHRONIC DEPRESSION 7. BIPOLAR DISORDER 8. 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 HYPERLIPIDEMIA 10. GERD 11. HYPERTENSION 12. COLONOSCOPY, 2016 DR. OLSEN 13. BACK SURGERY:CERVICAL DISCECTOMY, 2017 (STRENGE) LUMBAR LAMINECTOMY, 2016 14. CARPAL TUNNEL SURGERY 15. SCOLIOSIS LAST VITALS Temp Pulse Resp BP Pulse Ox 97.7 F 71 18 161/74 H 93 L 07/13/19 04:49 07/13/19 04:49 07/13/19 04:49 07/13/19 04:49 07/13/19 10:00 DISCHARGE INSTRUCTIONS: 1. DISCHARGE HOME WITH SPOUSE. 2. CONTINUE [facility] FOR: PRISON VISITS; BOWEL AND BLADDER ROUTINES, MEDICATION MANAGEMENT AND COMPLIANCE, NUTRITION; PHYSICAL AND OCCUPATIONAL THERAPY EVALUATIONS AND TREATMENT. 3. AN APPOINTMENT IS SCHEDULED WITH DR. RUIZ/CHAPARRITA ROJAS, [facility] ON July AT 3 PM. 4. AN APPOINTMENT IS SCHEDULED WITH DR. HANNAH GROSSAMN, [facility] ON AT 9 AM. 5. AN APPOINTMENT IS SCHEDULED WITH DR. Edwin HUGHES, [facility] ON January AT 1:10 PM. MEDICATIONS AT DISCHARGE: Hydrocodone Bitart/Acetaminophen ([place] 5-325) 1 tab PO BID PRN PRN Reason: Severe pain Apixaban (Eliquis) 5 mg PO BID [facility] Last Admin: 07/13/19 08:33 Dose: 5 mg Documented by: Aripiprazole (Abilify) 5 mg PO DAILY [facility] Last Admin: 07/13/19 08:28 Dose: 7.5 mg Documented by: Aspirin (Aspirin Chewable) 81 mg PO DAILYWM [facility] Last Admin: 07/13/19 08:30 Dose: 81 mg Documented by: Losartan Potassium (Cozaar) 100 mg PO DAILY [facility] Last Admin: 07/13/19 08:29 Dose: 100 mg Documented by: Omeprazole (Prilosec) 20 mg PO BIDAC [facility] Last Admin: 07/13/19 05:57 Dose: 20 mg Documented by: Paroxetine HCl (Paxil) 20 mg PO DAILY [facility] Last Admin: 07/13/19 08:29 Dose: 20 mg Documented by: Polyethylene Glycol (Miralax) 17 gm PO BID [facility] Last Admin: 07/13/19 08:30 Dose: 17 gm Documented by: Potassium Chloride (K-Dur) 20 meq PO DAILYWM [facility] Last Admin: 07/13/19 08:30 Dose: 20 meq Documented by: Sennosides (Senna) 8.6 mg PO DAILY [facility] Last Admin: 07/13/19 08:29 Dose: 8.6 mg Documented by: Simvastatin (Zocor) 40 mg PO BEDTIME [facility] Last Admin: 07/12/19 20:54 Dose: 40 mg Documented by: NEW PRESCRIPTIONS: MIRALAX 17 GRAMS BID IN WATER SENNA 8.6 MG DAILY NORCO 5-325 MG BID PRN DISCONTINUED MEDICATIONS: TRAZODONE NORCO 7.5 MG DYAZIDE DIET INSTRUCTIONS: 1. REGULAR DIET TOLERATED 2. BRAN FLAKES SUGGESTED DAILY 3. FULL GLASS OF WATER AT MEALS ACTIVITY: 1. UP IN CHAIR FOR MEALS 2. INCREASE ACTIVITY TOLERATED SMOKING: NOT APPLICABLE DISEASE SPECIFIC EDUCATION: ACTIVITY NEW MEDICATIONS APPOINTMENTS CONSTIPATION HOSPITAL COURSE: This is a white female who is brought to the emergency room with abdominal pain and urinary retention. He was found to have fecal impaction, was unable to void on her own. Initial bladder scan revealed 800 cc. This has been an ongoing problem. She saw Urology about one week ago. They saw no problems that should be causing her urinary retention. CT scan of the abdomen revealed no acute abnormality other than severe constipation as well as fecal impaction. Dr. Gifford performed a removal of stool manually in the emergency room; however, she was unable to go on her own. She has a history of noncompliance. She received multiple enemas, refused to drink Mag Citrate on the first day, was having small liquid stools yesterday. She did drink Magnesium Citrate. We had increased her Miralax to twice daily which she was agreeable to drinking. We have also been giving stool softeners, gave her another enema and since then she has had three very large bowel movements. She has alos been able to void on her own. I feel the urinary retention is likely related to the severe constipation. She has been on [place] for a number of years however we held this related to the constipation during her hospitalization. Her pain was tolerated. She did receive some Toradol on two to three different occasions. However, I do think this is contributing so we will decrease her [place] to 5 mg twice a day p.r.n., it was 7.5 mg q.i.d. p.r.n. I have instructed her on a high fiber diet. We are going to continue the Miralax one capful twice daily to keep stools loose. She has been voiding on her own for the past 36 hours. Bladder scans have revealed less than 200 cc's intermittently so I do not feel that she is retaining. She is completely emptying. She has a followup with Urology in a few months. She is to keep that. She did miss an appointment with Dr. Grossman while she was hospitalized which she is seen for a pulmonary nodule. 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 Dr. Yao the cardiothoracic surgeon declined to do a biopsy. He recommended that she go to [place] for which the patient has refused. We will followup with her in the office next week. She is discharged in stable condition. We will resume Home Health that she had previously been getting at home. TIME SPENT: More than 60 minutes. APURVA
--- NOTE | 2019-07-14 14:25 | PN ---
DATE OF SERVICE: 07/13/19 SUBJECTIVE: The patient seems to be a lot better. Cardiovascular status is stable. She has multiple medical conditions. Her problems are constipation coming from her medications and depression with deterioration of overall health status with malnutrition. The patient had two large bowel movements. She is voiding on her own. She will be discharged today. Condition at time of discharge stable. Prognosis is poor. The patient was seen and examined with the nurse practitioner. TIME SPENT: More than 30 minutes. Plan and coordination of the patient's care discussed in the presence of nurse. APURVA
--- NOTE | 2019-07-14 14:27 | PN ---
BILLING 07/09/19 ADMISSION DAY LEVEL 5 07/10/19 INTERMEDIATE 07/11/19 INTERMEDIATE 07/12/19 INTERMEDIATE 07/13/19 DISCHARGE MTDD
== END 2019-07-13 12:40 | disposition home health service (06) | DRG 392 ==
LOC: ED 08:32 → MEDSURG B 12:00
PROVIDERS: ADMIT Internal Medicine; ATTEND Internal Medicine
DX: K21.9 Gastro-esophageal reflux disease without esophagitis; Z86.711 Personal history of pulmonary embolism; R91.1 Solitary pulmonary nodule; R10.30 Lower abdominal pain, unspecified; Z91.19 Patient's noncompliance with other medical treatment and regimen; I10 Essential (primary) hypertension; R30.0 Dysuria; F32.9 Major depressive disorder, single episode, unspecified; K62.5 Hemorrhage of anus and rectum; K56.41 Fecal impaction; K59.00 Constipation, unspecified; K62.89 Other specified diseases of anus and rectum; E78.5 Hyperlipidemia, unspecified; G89.29 Other chronic pain; R33.9 Retention of urine, unspecified